=== PATIENT | male | born 1945 | race Caucasian/White ===

== ENCOUNTER 2018-04-09 19:01 | Inpatient (IN) | payer MEDICARE, BC ==
[2018-04-09] MEDS ORDERED: Acetaminophen 325 MG Tab PO ONE (19:37)
[2018-04-09] MEDS ORDERED: Sodium Chloride 0.9% 1,000 ML IV ONE (19:37)
[2018-04-09] MEDS ORDERED: cefTRIAXone 1 GM Vial IVPUSH ONE (20:33)
--- NOTE | 2018-04-09 20:35 | EDM.PDOC ---
ED HPI GENERAL MEDICAL PROBLEM - General Chief Complaint: General Stated Complaint: SHORT OF BREATH, SHAKING Time Seen by Provider: 04/09/18 19:35 Source of Information: Reports: Patient History Limitations: Reports: No Limitations - History of Present Illness INITIAL COMMENTS - FREE TEXT/NARRATIVE: Patient is a 73-year-old gentleman who presents to the emergency department via EMS for complaint of fever. Patient states that he developed a cough yesterday. However, developed fever, sweaty and weakness today. Patient has a history of urinary retention and does daily urinary catheterization. Patient states he averages about 4 times per day. Patient denies chest pain, shortness of breath, abdominal pain, flank pain, testicular pain, contact with any known sick individuals, or bowel changes. 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 Constitutional: Reports: Fever, Chills, Malaise, Weakness HEENT: Reports: No Symptoms Respiratory: Reports: Cough Cardiovascular: Reports: No Symptoms Endocrine: Reports: No Symptoms GI/Abdominal: Reports: No Symptoms : Reports: Urinary Retention Musculoskeletal: Reports: No Symptoms Skin: Reports: Diaphoresis Neurological: Reports: No Symptoms Psychiatric: Reports: No Symptoms Hematologic/Lymphatic: Reports: No Symptoms Immunologic: Reports: No Symptoms ED EXAM, GENERAL - Physical Exam Exam: See Below Exam Limited By: No Limitations General Appearance: Alert, WD/WN, No Apparent Distress Eye Exam: Bilateral Eye: Normal Inspection Nose: Normal Inspection, Normal Mucosa, No Blood Throat/Mouth: Normal Inspection, Normal Oropharynx, No Airway Compromise Head: Atraumatic, Normocephalic Neck: Normal Inspection, Supple, Non-Tender Respiratory/Chest: No Respiratory Distress, Lungs Clear, Normal Breath Sounds, No Accessory Muscle Use, Chest Non-Tender Cardiovascular: No Murmur, Tachycardia GI/Abdominal: Normal Bowel Sounds, Soft, Non-Tender (Male) Exam: Normal Inspection Back Exam: Normal Inspection. No: CVA Tenderness (L), CVA Tenderness (R) Extremities: Normal Inspection, Non-Tender, No Pedal Edema Neurological: Alert, Oriented, Normal Cognition Psychiatric: Normal Affect, Normal Mood Skin Exam: Warm, Intact, Normal Color, No Rash, Diaphoretic Lymphatic: No Adenopathy Course - Vital Signs Last Recorded V/S: Last Vital Signs Temp 102.6 F H 04/09/18 20:53 Pulse 121 H 04/09/18 19:29 Resp 27 H 04/09/18 19:29 BP 120/53 L 04/09/18 19:29 Pulse Ox 93 L 04/09/18 19:29 - Orders/Labs/Meds Orders: Active Orders 24 hr Category Date Time Status Peripheral IV Care [RC] . DIRECTED Care 04/09/18 19:37 Ordered CULTURE BLOOD [BC] Stat Lab 04/09/18 19:37 Ordered CULTURE BLOOD [BC] Stat Lab 04/09/18 19:37 Ordered CULTURE URINE [RM] Stat Lab 04/09/18 20:10 Received Sodium Chloride 0.9% [Saline Flush] Med 04/09/18 19:37 Ordered 10 ml FLUSH Q8HR PRN Blood Culture x2 Reflex Set [OM.PC] Stat Oth 04/09/18 19:37 Ordered Peripheral IV Insertion Adult [OM.PC] Routine Oth 04/09/18 19:37 Ordered Medication Orders Sodium Chloride (Saline Flush) 10 ml FLUSH Q8HR PRN PRN Reason: keep vein open Labs: Laboratory Tests 04/09/18 04/09/18 04/09/18 Range/Units 19:20 19:20 19:20 WBC 7.07 (5.00-10.00) 10^3/uL RBC 5.24 (4.50-6.00) 10^6/uL Hgb 16.0 (13.0-17.0) g/dL Hct 45.6 (40.0-52.0) % MCV 87.0 (82.0-92.0) fL MCH 30.5 (27.0-31.0) pg MCHC 35.1 (32.0-36.0) g/dL RDW 15.0 H (11.5-14.5) % Plt Count 196 (150-400) 10^3/uL MPV 8.8 (7.4-10.4) fL Immature Gran % (Auto) 0.4 (0.0-5.0) % Neut % (Auto) 88.1 H (50.0-70.0) % Lymph % (Auto) 8.9 L (20.0-40.0) % [place] % (Auto) 2.3 (2.0-8.0) % Eos % (Auto) 0.0 L (1.0-3.0) % Baso % (Auto) 0.3 (0.0-1.0) % Immature Gran # (Auto) 0.03 (0.00-0.50) 10^3/uL Neut # (Auto) 6.23 (2.50-7.00) 10^3/uL Lymph # (Auto) 0.63 L (1.00-4.00) 10^3/uL [place] # (Auto) 0.16 (0.10-0.80) 10^3/uL Eos # (Auto) 0.00 L (0.10-0.30) 10^3/uL Baso # (Auto) 0.02 (0.00-0.10) 10^3/uL Sodium 135 L (136-145) mmol/L Potassium 3.4 (3.3-5.3) mmol/L Chloride 98 (98-115) mmol/L Carbon Dioxide 21.4 (21.0-32.0) mmol/L Anion Gap 19.0 H (5-15) mmol/L BUN 27 H (6-25) mg/dL Creatinine 1.52 H (0.51-1.17) mg/dL Est Cr Clr Drug Dosing 48.19 mL/min Estimated GFR (MDRD) 45 mL/min Glucose 124 H (75 - 99) mg/dL Lactic Acid 2.4 H (0.4-2.0) mmol/L Calcium 8.9 (8.7-10.3) mg/dL Total Bilirubin 1.2 H (0.2-1.0) mg/dL AST 39 H (15-37) U/L ALT 39 (12-78) U/L Alkaline Phosphatase 70 (46-116) IU/L Total Protein 7.7 (6.4-8.2) g/dL Albumin 3.36 (3.00-4.80) g/dL Specimen Type Urine Color (YELLOW) Urine Appearance (CLEAR) Urine pH (5.0-9.0) Ur Specific [place] (1.005-1.030) Urine Protein (NEGATIVE) mg/dL Urine Glucose (UA) (NEGATIVE) mg/dL Urine Ketones (NEGATIVE) mg/dL Urine Occult Blood (NEGATIVE) Urine Nitrite (NEGATIVE) Urine Bilirubin (NEGATIVE) Urine Urobilinogen (0.2-1.0) E.U./dL Ur Leukocyte Esterase (NEGATIVE) Urine RBC (0-5) /HPF Urine WBC (0-5) /HPF Ur Epithelial Cells /LPF Urine Bacteria (NONE TO FEW) /HPF 04/09/18 Range/Units 20:10 WBC (5.00-10.00) 10^3/uL RBC (4.50-6.00) 10^6/uL Hgb (13.0-17.0) g/dL Hct (40.0-52.0) % MCV (82.0-92.0) fL MCH (27.0-31.0) pg MCHC (32.0-36.0) g/dL RDW (11.5-14.5) % Plt Count (150-400) 10^3/uL MPV (7.4-10.4) fL Immature Gran % (Auto) (0.0-5.0) % Neut % (Auto) (50.0-70.0) % Lymph % (Auto) (20.0-40.0) % [place] % (Auto) (2.0-8.0) % Eos % (Auto) (1.0-3.0) % Baso % (Auto) (0.0-1.0) % Immature Gran # (Auto) (0.00-0.50) 10^3/uL Neut # (Auto) (2.50-7.00) 10^3/uL Lymph # (Auto) (1.00-4.00) 10^3/uL [place] # (Auto) (0.10-0.80) 10^3/uL Eos # (Auto) (0.10-0.30) 10^3/uL Baso # (Auto) (0.00-0.10) 10^3/uL Sodium (136-145) mmol/L Potassium (3.3-5.3) mmol/L Chloride (98-115) mmol/L Carbon Dioxide (21.0-32.0) mmol/L Anion Gap (5-15) mmol/L BUN (6-25) mg/dL Creatinine (0.51-1.17) mg/dL Est Cr Clr Drug Dosing mL/min Estimated GFR (MDRD) mL/min Glucose (75 - 99) mg/dL Lactic Acid (0.4-2.0) mmol/L Calcium (8.7-10.3) mg/dL Total Bilirubin (0.2-1.0) mg/dL AST (15-37) U/L ALT (12-78) U/L Alkaline Phosphatase (46-116) IU/L Total Protein (6.4-8.2) g/dL Albumin (3.00-4.80) g/dL Specimen Type Urincc Urine Color Yellow (YELLOW) Urine Appearance Turbid H (CLEAR) Urine pH 5.5 (5.0-9.0) Ur Specific [place] >= 1.030 (1.005-1.030) Urine Protein 100 H (NEGATIVE) mg/dL Urine Glucose (UA) Negative (NEGATIVE) mg/dL Urine Ketones Negative (NEGATIVE) mg/dL Urine Occult Blood Moderate H (NEGATIVE) Urine Nitrite Positive H (NEGATIVE) Urine Bilirubin Negative (NEGATIVE) Urine Urobilinogen 1.0 (0.2-1.0) E.U./dL Ur Leukocyte Esterase Small H (NEGATIVE) Urine RBC 5-10 H (0-5) /HPF Urine WBC 50-75 H (0-5) /HPF Ur Epithelial Cells Occasional /LPF Urine Bacteria Many H (NONE TO FEW) /HPF Meds: Medications Generic Name Dose Route Start Last Admin Trade Name Freq PRN Reason Stop Dose Admin Sodium Chloride 10 ml 04/09/18 19:37 Saline Flush FLUSH Q8HR PRN keep vein open Discontinued Medications Generic Name Dose Route Start Last Admin Trade Name Freq PRN Reason Stop Dose Admin Acetaminophen 650 mg 04/09/18 19:37 04/09/18 19:48 Tylenol PO 04/09/18 19:38 650 mg NOW ONE Administration Ceftriaxone Sodium 1 gm 04/09/18 20:33 04/09/18 20:51 Rocephin IVPUSH 04/09/18 20:34 1 gm ONETIME ONE Administration Sodium Chloride 1,000 mls @ 999 mls/hr 04/09/18 19:37 04/09/18 19:46 Normal Saline IV 04/09/18 20:37 999 mls/hr .BOLUS ONE Administration Ibuprofen 600 mg 04/09/18 20:47 04/09/18 20:53 Motrin PO 04/09/18 20:48 600 mg ONETIME ONE Administration - Radiology Interpretation Free Text/Narrative:: Chest x-ray shows perihilar vascular congestion and cardiomegaly Departure - Departure Time of Disposition: 21:22 Disposition: Admitted As Inpatient 65 Condition: Fair Clinical Impression: UTI, Urinary tract infectious disease - Discharge Information Referrals: Memo Arevalo PA-C [Primary Care Provider] - Forms: ED Department Discharge - My Orders Last 24 Hours: My Active Orders 04/09/18 19:37 Peripheral IV Care [RC] . DIRECTED CULTURE BLOOD [BC] Stat CULTURE BLOOD [BC] Stat Sodium Chloride 0.9% [Saline Flush] 10 ml FLUSH Q8HR PRN Blood Culture x2 Reflex Set [OM.PC] Stat Peripheral IV Insertion Adult [OM.PC] Routine 04/09/18 20:10 CULTURE URINE [RM] Stat - Assessment/Plan Last 24 Hours: My Active Orders 04/09/18 19:37 Peripheral IV Care [RC] . DIRECTED CULTURE BLOOD [BC] Stat CULTURE BLOOD [BC] Stat Sodium Chloride 0.9% [Saline Flush] 10 ml FLUSH Q8HR PRN Blood Culture x2 Reflex Set [OM.PC] Stat Peripheral IV Insertion Adult [OM.PC] Routine 04/09/18 20:10 CULTURE URINE [RM] Stat Assessment:: Urinary tract infection Plan: Admitted inpatient to Dr. Dumas
[2018-04-09] MEDS ORDERED: Ibuprofen 600 MG Tab PO ONE (20:47)
--- NOTE | 2018-04-09 21:08 | CR ---
[id number] RAD/RAD Chest PA or AP 1V EXAM: RAD Chest PA or AP 1V INDICATION: FEVER COMPARISON: None. DISCUSSION: Cardiomediastinal silhouette is increased in size. Low lung volumes. Pulmonary vascular congestion with patchy airspace opacification bilaterally. No pneumothorax or pleural effusion. IMPRESSION: Pulmonary vascular congestion in the setting of cardiomegaly. Yan Goel DO 04/09/18 2107 Thank you for allowing us to participate in the care of your patient.
[2018-04-09] MEDS: Sodium Chloride 0.9% 1,000 ML IV SCH (21:34)
[2018-04-10] MEDS: Sodium Chloride 0.9% 1,000 ML IV SCH ×3 (05:34→20:42)
[2018-04-10] MEDS: Simvastatin 20 MG Tab PO SCH (08:10)
[2018-04-10] MEDS: Dutasteride 0.5 MG Cap PO SCH (08:10)
[2018-04-10] MEDS: Acetaminophen 500 MG Tab PO PRN ×2 (08:15→21:37)
--- NOTE | 2018-04-10 12:03 | PCM.HP ---
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, RN History Limitations: Reports: No Limitations - Related Data Allergies/Adverse Reactions: Allergies Allergy/AdvReac Type Severity Reaction Status Date / Time No Known Drug Allergies Allergy Cannot Verified 04/09/18 19:36 Remember Home Medications: Home Meds Dutasteride 0.5 mg PO DAILY 04/09/18 [History] Losartan/Hydrochlorothiazide [Losartan-HCTZ 50-12.5 MG] 1 tab PO DAILY 04/09/18 [History] Simvastatin 20 mg PO DAILY 04/09/18 [History] Past Medical History Cardiovascular History: Reports: High Cholesterol, Hypertension Gastrointestinal History: Reports: None Genitourinary History: Reports: Retention, Urinary, Other (See Below) Other Genitourinary History: self cath - Past Surgical History Head Surgeries/Procedures: Reports: None Cardiovascular Surgical History: Reports: None GI Surgical History: Reports: Hernia, Inguinal Male Surgical History: Reports: None Social & Family History - Family History Family Medical History: Noncontributory - Tobacco Use Smoking Status *Q: Never Smoker - Caffeine Use Caffeine Use: Reports: Coffee, Soda - Recreational Drug Use Recreational Drug Use: No H&P Review of Systems - Review of Systems: Review Of Systems: See Below General: Reports: Fever, Malaise, Night Sweats HEENT: Reports: No Symptoms Pulmonary: Reports: No Symptoms Cardiovascular: Reports: Blood Pressure Problem Gastrointestinal: Reports: No Symptoms Genitourinary: Reports: Retention Musculoskeletal: Reports: No Symptoms Skin: Reports: No Symptoms Psychiatric: Denies: Confusion, Agitation Neurological: Reports: No Symptoms Hematologic/Lymphatic: Reports: No Symptoms Immunologic: Reports: No Symptoms Exam - Exam Exam: See Below - Vital Signs Vital Signs: Last Vital Signs Temp 97.3 F 04/10/18 10:41 Pulse 78 04/10/18 10:41 Resp 17 04/10/18 10:41 BP 100/59 L 04/10/18 10:41 Pulse Ox 96 04/10/18 10:41 Weight: 222 lb 11.2 oz - Exam Quality Assessment: No: Supplemental Oxygen General: Alert, Oriented, Cooperative. No: Mild Distress HEENT: Conjunctiva Clear, Mucosa Moist & [place]. No: Scleral Icterus Neck: Supple, Trachea Midline. No: JVD Lungs: Clear to Auscultation, Normal Respiratory Effort Cardiovascular: Regular Rate, Regular Rhythm, Normal S1, Normal S2 GI/Abdominal Exam: Soft, Other (Decreased bowel tones). No: Distended, Guarding , Rigid, Mass (Male) Exam: Deferred Back Exam: No: CVA Tenderness (L), CVA Tenderness (R) Extremities: No Pedal Edema Peripheral Pulses: 1+: Brachial (R), 2+: Radial (L) Skin: Warm, Dry, Intact Neurological: Cranial Nerves Intact Neuro Extensive - Mental Status: Alert, Oriented x3, Normal Mood/Affect, Normal Cognition Neuro Extensive - Motor, Sensory, Reflexes: CN II-XII Intact Psychiatric: Alert, Normal Affect, Normal Mood - Patient Data Lab Results Last 24 hrs: Laboratory Results - last 24 hr 04/09/18 04/09/18 04/09/18 Range/Units 19:20 19:20 19:20 WBC 7.07 (5.00-10.00) 10^3/uL RBC 5.24 (4.50-6.00) 10^6/uL Hgb 16.0 (13.0-17.0) g/dL Hct 45.6 (40.0-52.0) % MCV 87.0 (82.0-92.0) fL MCH 30.5 (27.0-31.0) pg MCHC 35.1 (32.0-36.0) g/dL RDW 15.0 H (11.5-14.5) % Plt Count 196 (150-400) 10^3/uL MPV 8.8 (7.4-10.4) fL Immature Gran % (Auto) 0.4 (0.0-5.0) % Neut % (Auto) 88.1 H (50.0-70.0) % Lymph % (Auto) 8.9 L (20.0-40.0) % [place] % (Auto) 2.3 (2.0-8.0) % Eos % (Auto) 0.0 L (1.0-3.0) % Baso % (Auto) 0.3 (0.0-1.0) % Immature Gran # (Auto) 0.03 (0.00-0.50) 10^3/uL Neut # (Auto) 6.23 (2.50-7.00) 10^3/uL Lymph # (Auto) 0.63 L (1.00-4.00) 10^3/uL [place] # (Auto) 0.16 (0.10-0.80) 10^3/uL Eos # (Auto) 0.00 L (0.10-0.30) 10^3/uL Baso # (Auto) 0.02 (0.00-0.10) 10^3/uL Sodium 135 L (136-145) mmol/L Potassium 3.4 (3.3-5.3) mmol/L Chloride 98 (98-115) mmol/L Carbon Dioxide 21.4 (21.0-32.0) mmol/L Anion Gap 19.0 H (5-15) mmol/L BUN 27 H (6-25) mg/dL Creatinine 1.52 H (0.51-1.17) mg/dL Est Cr Clr Drug Dosing 48.19 mL/min Estimated GFR (MDRD) 45 mL/min Glucose 124 H (75 - 99) mg/dL Lactic Acid 2.4 H (0.4-2.0) mmol/L Calcium 8.9 (8.7-10.3) mg/dL Total Bilirubin 1.2 H (0.2-1.0) mg/dL AST 39 H (15-37) U/L ALT 39 (12-78) U/L Alkaline Phosphatase 70 (46-116) IU/L B-Natriuretic Peptide (0-100) pg/mL Total Protein 7.7 (6.4-8.2) g/dL Albumin 3.36 (3.00-4.80) g/dL Specimen Type Urine Color (YELLOW) Urine Appearance (CLEAR) Urine pH (5.0-9.0) Ur Specific [place] (1.005-1.030) Urine Protein (NEGATIVE) mg/dL Urine Glucose (UA) (NEGATIVE) mg/dL Urine Ketones (NEGATIVE) mg/dL Urine Occult Blood (NEGATIVE) Urine Nitrite (NEGATIVE) Urine Bilirubin (NEGATIVE) Urine Urobilinogen (0.2-1.0) E.U./dL Ur Leukocyte Esterase (NEGATIVE) Urine RBC (0-5) /HPF Urine WBC (0-5) /HPF Ur Epithelial Cells /LPF Urine Bacteria (NONE TO FEW) /HPF 04/09/18 04/09/18 Range/Units 19:20 20:10 WBC (5.00-10.00) 10^3/uL RBC (4.50-6.00) 10^6/uL Hgb (13.0-17.0) g/dL Hct (40.0-52.0) % MCV (82.0-92.0) fL MCH (27.0-31.0) pg MCHC (32.0-36.0) g/dL RDW (11.5-14.5) % Plt Count (150-400) 10^3/uL MPV (7.4-10.4) fL Immature Gran % (Auto) (0.0-5.0) % Neut % (Auto) (50.0-70.0) % Lymph % (Auto) (20.0-40.0) % [place] % (Auto) (2.0-8.0) % Eos % (Auto) (1.0-3.0) % Baso % (Auto) (0.0-1.0) % Immature Gran # (Auto) (0.00-0.50) 10^3/uL Neut # (Auto) (2.50-7.00) 10^3/uL Lymph # (Auto) (1.00-4.00) 10^3/uL [place] # (Auto) (0.10-0.80) 10^3/uL Eos # (Auto) (0.10-0.30) 10^3/uL Baso # (Auto) (0.00-0.10) 10^3/uL Sodium (136-145) mmol/L Potassium (3.3-5.3) mmol/L Chloride (98-115) mmol/L Carbon Dioxide (21.0-32.0) mmol/L Anion Gap (5-15) mmol/L BUN (6-25) mg/dL Creatinine (0.51-1.17) mg/dL Est Cr Clr Drug Dosing mL/min Estimated GFR (MDRD) mL/min Glucose (75 - 99) mg/dL Lactic Acid (0.4-2.0) mmol/L Calcium (8.7-10.3) mg/dL Total Bilirubin (0.2-1.0) mg/dL AST (15-37) U/L ALT (12-78) U/L Alkaline Phosphatase (46-116) IU/L B-Natriuretic Peptide 66 (0-100) pg/mL Total Protein (6.4-8.2) g/dL Albumin (3.00-4.80) g/dL Specimen Type Urincc Urine Color Yellow (YELLOW) Urine Appearance Turbid H (CLEAR) Urine pH 5.5 (5.0-9.0) Ur Specific [place] >= 1.030 (1.005-1.030) Urine Protein 100 H (NEGATIVE) mg/dL Urine Glucose (UA) Negative (NEGATIVE) mg/dL Urine Ketones Negative (NEGATIVE) mg/dL Urine Occult Blood Moderate H (NEGATIVE) Urine Nitrite Positive H (NEGATIVE) Urine Bilirubin Negative (NEGATIVE) Urine Urobilinogen 1.0 (0.2-1.0) E.U./dL Ur Leukocyte Esterase Small H (NEGATIVE) Urine RBC 5-10 H (0-5) /HPF Urine WBC 50-75 H (0-5) /HPF Ur Epithelial Cells Occasional /LPF Urine Bacteria Many H (NONE TO FEW) /HPF Result Diagrams: 04/09/18 19:20 04/09/18 19:20 Lm Results Last 24 hrs: Microbiology 04/09/18 19:20 Aerobic Blood Culture - Final Blood - Venous - Lab Draw 04/09/18 19:20 Aerobic Blood Culture - Final Blood - Venous Anaerobic Blood Culture - Final 04/09/18 20:10 Urine Culture - Final Urine, Clean Catch 04/09/18 19:20 Influenza Type A Antigen Screen - Final Nasal Aspirate, Unspecified NEGATIVE INFLUENZA A VIRUS AG Influenza Type B Antigen Screen - Final NEGATIVE INFLUENZA B VIRUS AG Problem List Initiated/Reviewed/Updated: Yes Orders Last 24hrs: Active Orders 24 hr Category Date Time Status Patient Status [ADT] Routine ADT 04/09/18 21:16 Ordered Phillips Catheter Insertion [Insert Urinary Catheter] [OM. Care 04/10/18 05:15 Ordered PC] Q24H Oxygen Therapy [RC] PRN Care 04/09/18 21:16 Active Urinary Catheter Assessment [RC] 0900,2100 Care 04/10/18 05:10 Active Vital Signs [RC] 0300,0700,1100,1500,1900,2300 Care 04/09/18 21:16 Active AEROBIC IDENT [MREF] Stat Lab 04/09/18 19:20 Received AEROBIC IDENT [MREF] Stat Lab 04/09/18 19:20 Received AEROBIC IDENT [MREF] Stat Lab 04/09/18 19:20 Received AEROBIC IDENT [MREF] Stat Lab 04/09/18 19:20 Received CULTURE BLOOD [BC] Stat Lab 04/09/18 19:20 Results URINE ID [MREF] Stat Lab 04/09/18 20:10 Received Acetaminophen [Tylenol Extra Strength] Med 04/09/18 22:16 Active 500 mg PO Q6H PRN Dutasteride [Avodart] Med 04/10/18 09:00 Active 0.5 mg PO DAILY Simvastatin [Zocor] Med 04/10/18 09:00 Active 20 mg PO DAILY Sodium Chloride 0.9% [Normal Saline] 1,000 ml Med 04/09/18 21:30 Active IV ASDIRECTED Sodium Chloride 0.9% [Saline Flush] Med 04/09/18 19:37 Active 10 ml FLUSH Q8HR PRN Blood Culture x2 Reflex Set [OM.PC] Stat Oth 04/09/18 19:37 Ordered Peripheral IV Insertion Adult [OM.PC] Routine Oth 04/09/18 19:37 Ordered Resuscitation Status Routine Resus Stat 04/09/18 21:16 Ordered Medication Orders Acetaminophen (Tylenol Extra Strength) 500 mg PO Q6H PRN PRN Reason: temp >100.0 Last Admin: 04/10/18 08:15 Dose: 500 mg Dutasteride (Avodart) 0.5 mg PO DAILY [facility] Last Admin: 04/10/18 08:10 Dose: 0.5 mg Sodium Chloride (Normal Saline) 1,000 mls @ 125 mls/hr IV ASDIRECTED [facility] Last Admin: 04/10/18 05:34 Dose: 125 mls/hr Infusion: 04/10/18 05:34 Dose: 125 mls/hr Admin: 04/09/18 21:34 Dose: 125 mls/hr Simvastatin (Zocor) 20 mg PO DAILY [facility] Last Admin: 04/10/18 08:10 Dose: 20 mg Sodium Chloride (Saline Flush) 10 ml FLUSH Q8HR PRN PRN Reason: keep vein open Assessment/Plan Comment:: History of present illness Roberto is a 73-year-old patient who was admitted through the ED when he came in for fever. Patient was in his usual state of health up until 24 hours upon presentation when he started developing a cough, diaphoresis and some weakness. Patient has BPH with urinary retention in which he self catheterizes himself up to 4 times a day, however does admit to some decreased oral intake and being in a card game tournament which he does admit waiting longer before self catheterization. Patient denies chest pain, shortness of breath, abdominal pain , flank pain, testicular pain, ill contacts, or bowel changes. ED course Patient presented to ED with documented temperature 101.8 with tachycardia, initial BP reading of 120/53 with increased RR with decreasingn BP later into admission. O2 saturations 93% however required 10 L of oxygen patient was somewhat confused and does not remember much leading up to the events. Although WBC was normal he did have neutrophilia, Reviewing his UA appears consistent with sx and highly suggestive of a urological etiology. Blood cultures urine cultures were obtained, Rocephin was given in ED. Primary Hospitalization problems: Bacteriuria/catheter related UTI, suspect E.coli urine culture gram-negative, possibly polymicrobial, Bacteremia, antibiotics, IV fluids, qSOFA improving 1/3 now Urinary retention, chronic continue Phillips catheterization for accurate output today Pyuria, >50 WBC noted. Confusion, resolved Chronic but stable problems BPH, home med of Dutasteride, (review of EMR/EPIC has flomax, will update) HTN, HOLD home meds due to sepsis HLD, on home statin however review of EMR appears pt is not in statin benefit group, will discuss about possible discontinuation Prophylactic measures --VTE, LMWH --GI stress, PPI therapy Hospitalization details: Continue NS at 125cc/hr. Electrolytes normal; recheck tomorrow. add Regular diet , may decrease tonight PPX: Enoxaparin for DVT ppx. Code status: FULL. Disposition Continue with admission inpatient status, Clinical status starting to return back to his baseline. Afebrile, blood pressure lower then baseline but improving MAP at 70. Urine culture and anerobic BC growing gram negative rods, and aerobic gram-positive cocci, likely not ESBL, gram-positive cocci anaerobic thereby increase ceftriaxone to 2 g. At this time he seems to be improving with monotherapy ceftriaxone therefore will forego broadening antimicrobial coverage as long as signs and symptoms of sepsis are abating and not acutely evident. Patient will need extended stay.
[2018-04-10] MEDS ORDERED: Losartan 50 MG Tab PO SCH (12:15)
[2018-04-10] MEDS ORDERED: Hydrochlorothiazide 12.5 MG Cap PO SCH ×2 (12:15→12:30)
[2018-04-10] MEDS: Enoxaparin 40 MG/0.4 ML Syringe SUBCUT SCH (12:37)
[2018-04-10] MEDS: Omeprazole 20 MG Cap.CR PO SCH (13:45)
[2018-04-10] MEDS: cefTRIAXone 2 GM Vial IVPUSH SCH (17:37)
[2018-04-11] MEDS ORDERED: LORazepam 2 MG/ML SDV IVPUSH PRN (01:43)
[2018-04-11] MEDS: Ketorolac 30 MG/ML SDV IVPUSH PRN ×2 (02:01→22:48)
[2018-04-11] MEDS: Sodium Chloride 0.9% 1,000 ML IV SCH (05:10)
[2018-04-11] MEDS: Simvastatin 20 MG Tab PO SCH (08:35)
[2018-04-11] MEDS: Omeprazole 20 MG Cap.CR PO SCH (08:35)
[2018-04-11] MEDS: Dutasteride 0.5 MG Cap PO SCH (08:35)
[2018-04-11 10:05] LABS: ANION GAP 15.4 mmol/L (5-15); CHLORIDE,CL 106 mmol/L (98-115); SODIUM,NA 137 mmol/L (136-145)
--- NOTE | 2018-04-11 12:38 | PCM.PN ---
- General Info Date of Service: 04/11/18 Subjective Update: Mr. Wilkerson reports feeling well this morning. States he feels much better than at admission. He continues to have a cough, but denies any associated sputum production, shortness of breath, chest pain, palpitations, or other concerns. When noting previously documented respiratory rate being elevated, he states he feels his rate is normal for him and denies it feeling fast or labored. He was previously self catheterizing 2-3 times daily and now has an indwelling catheter in, which he states he desires to leave in place at this time. Appetite was improved, but today not very hungry for lunch. Denies fever, headache, sore throat, abdominal pain, flank pain, genital pain, nausea, vomiting, diarrhea, constipation, leg pain, or other concerns. - Patient Data Vitals - Most Recent: Last Vital Signs Temp 37.2 C 04/11/18 11:00 Pulse 103 H 04/11/18 11:00 Resp 36 H 04/11/18 11:00 BP 144/87 H 04/11/18 11:00 Pulse Ox 93 L 04/11/18 11:00 Weight - Most Recent: 101.015 kg I&O - Last 24 Hours: Intake & Output 04/10/18 04/11/18 04/11/18 22:59 06:59 14:59 Intake Total 1383 980 Output Total 500 500 Balance 883 480 Lab Results Last 24 Hours: Laboratory Results - last 24 hr 04/11/18 04/11/18 Range/Units 07:27 07:27 WBC 9.34 (5.00-10.00) 10^3/uL RBC 4.45 L (4.50-6.00) 10^6/uL Hgb 13.6 D (13.0-17.0) g/dL Hct 39.2 L (40.0-52.0) % MCV 88.1 (82.0-92.0) fL MCH 30.6 (27.0-31.0) pg MCHC 34.7 (32.0-36.0) g/dL RDW 15.6 H (11.5-14.5) % Plt Count 180 (150-400) 10^3/uL MPV 9.2 (7.4-10.4) fL Immature Gran % (Auto) 0.2 (0.0-5.0) % Neut % (Auto) 81.0 H (50.0-70.0) % Lymph % (Auto) 12.3 L (20.0-40.0) % [place] % (Auto) 6.4 (2.0-8.0) % Eos % (Auto) 0.0 L (1.0-3.0) % Baso % (Auto) 0.1 (0.0-1.0) % Immature Gran # (Auto) 0.02 (0.00-0.50) 10^3/uL Neut # (Auto) 7.56 H (2.50-7.00) 10^3/uL Lymph # (Auto) 1.15 (1.00-4.00) 10^3/uL [place] # (Auto) 0.60 (0.10-0.80) 10^3/uL Eos # (Auto) 0.00 L (0.10-0.30) 10^3/uL Baso # (Auto) 0.01 (0.00-0.10) 10^3/uL Sodium 137 (136-145) mmol/L Potassium 3.4 (3.3-5.3) mmol/L Chloride 106 (98-115) mmol/L Carbon Dioxide 19.0 L (21.0-32.0) mmol/L Anion Gap 15.4 H (5-15) mmol/L BUN 30 H (6-25) mg/dL Creatinine 1.11 (0.51-1.17) mg/dL Est Cr Clr Drug Dosing 65.98 mL/min Estimated GFR (MDRD) > 60 mL/min Glucose 92 (75 - 99) mg/dL Calcium 7.9 L (8.7-10.3) mg/dL Lm Results Last 24 Hours: Microbiology 04/09/18 19:20 Aerobic Blood Culture - Final Blood - Venous - Lab Draw Anaerobic Blood Culture - Final 04/09/18 19:20 Aerobic Blood Culture - Final Blood - Venous Anaerobic Blood Culture - Final 04/09/18 20:10 Urine Culture - Final Urine, Clean Catch Med Orders - Current: Current Medications Acetaminophen (Tylenol Extra Strength) 500 mg PO Q6H PRN PRN Reason: temp >100.0 Last Admin: 04/10/18 21:37 Dose: 500 mg Ceftriaxone Sodium (Rocephin) 2 gm IVPUSH Q24H [facility] Last Admin: 04/10/18 17:37 Dose: 2 gm Dutasteride (Avodart) 0.5 mg PO DAILY [facility] Last Admin: 04/11/18 08:35 Dose: 0.5 mg Enoxaparin Sodium (Lovenox) 40 mg SUBCUT Q24H [facility] Last Admin: 04/10/18 12:37 Dose: 40 mg Hydrochlorothiazide (Hydrochlorothiazide) 12.5 mg PO DAILY [facility] Ketorolac Tromethamine (Toradol) 30 mg IVPUSH Q6H PRN PRN Reason: Pain Stop: 04/16/18 01:43 Last Admin: 04/11/18 02:01 Dose: 30 mg Lorazepam (Ativan) 0.5 mg IVPUSH Q6H PRN PRN Reason: Anxiety Last Admin: 04/11/18 03:58 Dose: 0.5 mg Losartan Potassium (Cozaar) 50 mg PO DAILY [facility] Melatonin (Melatonin) 3 mg PO BEDTIME [facility] Omeprazole (Omeprazole) 20 mg PO ACBREAKFAST [facility] Last Admin: 04/11/18 08:35 Dose: 20 mg Simvastatin (Zocor) 20 mg PO DAILY [facility] Last Admin: 04/11/18 08:35 Dose: 20 mg Sodium Chloride (Saline Flush) 10 ml FLUSH Q8HR PRN PRN Reason: keep vein open Discontinued Medications Acetaminophen (Tylenol) 650 mg PO NOW ONE Stop: 04/09/18 19:38 Last Admin: 04/09/18 19:48 Dose: 650 mg Ceftriaxone Sodium (Rocephin) 1 gm IVPUSH ONETIME ONE Stop: 04/09/18 20:34 Last Admin: 04/09/18 20:51 Dose: 1 gm Hydrochlorothiazide (Hydrochlorothiazide) 12.5 mg PO DAILY [facility] Last Admin: 04/10/18 12:34 Dose: Not Given Sodium Chloride (Normal Saline) 1,000 mls @ 999 mls/hr IV .BOLUS ONE Stop: 04/09/18 20:37 Last Admin: 04/09/18 19:46 Dose: 999 mls/hr Sodium Chloride (Normal Saline) 1,000 mls @ 125 mls/hr IV ASDIRECTED [facility] Last Admin: 04/11/18 05:10 Dose: 125 mls/hr Ibuprofen (Motrin) 600 mg PO ONETIME ONE Stop: 04/09/18 20:48 Last Admin: 04/09/18 20:53 Dose: 600 mg - Exam Physical Findings Comments:: GENERAL: Well-appearing elderly white male sitting in bedside chair in no acute distress, appearing comfortable. HEENT: Normocephalic, atraumatic. Conjunctiva clear. Nares patent without discharge. Mucous membranes moist, posterior pharynx unremarkable. NECK: Supple, no masses. CV: Regular rate and rhythm, no murmurs, rubs, or gallops. 2+ radial pulses. PULMONARY: Mildly tachypneic, but otherwise normal effort, clear to auscultation bilaterally, no wheezes, rales, or rhonchi. Occasional dry cough with deep breathing on exam. ABDOMEN: Obese, positive bowel sounds, soft, nontender, nondistended, no CVA tenderness. EXTREMITIES: No edema, cyanosis, or clubbing. MUSCULOSKELETAL: Moves all extremities well. NEUROLOGICAL: No obvious deficits. DERMATOLOGIC: No rashes or suspicious lesions in exposed areas. PSYCHIATRIC: Alert, interactive, appropriate affect. - Problem List Review Problem List Initiated/Reviewed/Updated: Yes - My Orders Last 24 Hours: My Active Orders 04/11/18 12:35 DC Phillips Catheter [Urinary Catheter Removal] [RC] Per Unit Routine 04/11/18 21:00 Melatonin 3 mg PO BEDTIME 04/12/18 05:11 BASIC METABOLIC PANEL,BMP [CHEM] AM CBC WITH AUTO DIFF [HEME] AM LACTIC ACID [CHEM] AM - Plan Plan:: HPI summary: Mr. Wilkerson is a 73yoM with a history of BPH with urinary retention for which he had prior indwelling urinary catheter and most recently self catheterizing who presented to the ED for fever. He was in his usual state of health up until 24 hours prior to presentation when he started developing a dry cough, diaphoresis , and generalized weakness. He had also been having decreased oral intake and a longer interval than usual between self catheterizations due to being in a card tournament. ED course: He had an initial temperature of 101.8 with tachycardia, tachypnea, and low end BP. Although WBC was normal, he did have neutrophilia. Remainder of labs notable for mildly increased lactic acid of 2.4. UA suggestive of infection. Presentation was thought to be highly suggestive of a urologic infection. Blood and urine cultures were obtained and ceftriaxone 1g given. He was admitted for further monitoring and management. Hospitalization problems and plan: # Sepsis: Initial qSOFA = 2, now = 1 with resolution of confusion, but persistent intermittent tachypnea. Fever on initial presentation without recurrence. He had initial low BPs, which improved with IVF and resolution in the past 24hrs. # Bacteremia: Gram negative rods and gram positive cocci, awaiting identification and susceptibilities. # Bacteriuria: Gram negative rods, awaiting identification and susceptibilities. # Elevated lactate: Admission lactate 2.4. # Neutrophilia: Admission 88%. Today 81%. # Cough: No evidence of infection or obvious fluid overload, but 5L positive on I/O since admission, and initial CXR with pulmonary vascular congestion. # Mild diastolic dysfunction: Echo 2016 finding along with mildly dilated right atrium. No prior clinical history of heart failure. # Acute kidney injury, resolved: Baseline Cr 1. Admission Cr 1.52. Today Cr 1.11. # BPH with urinary retention # Hyperbilirubinemia: Admission 1.2. # Elevated AST: Admission 39. # Confusion, resolved - Continue VS q4h and strict I/O - Await initial blood and urine culture identification and susceptibilities - Repeat blood cultures tomorrow due to presence of gram positive organism to ensure clearance - Repeat CBC, CMP, and lactate in AM - Saline lock IVF due to being +5L for admission, possible component of diastolic heart failure, and clinical and laboratory markers of dehydration now resolved - Continue ceftriaxone 2gm q24h (He was initially given ceftriaxone 1g, which was increased to 2g on admission.) to cover for gram negative rods, likely of urinary source - Start vancomycin to cover for gram positive cocci noted on blood culture - Continue dutasteride - Restart tamsulosin as is documented as recommending continuing at last urology visit - Consider catheter discontinuation tomorrow with return to intermittent self catheterization Chronic, stable conditions: # HTN: Continue holding HCTZ and losartan in setting of sepsis, as above. # HLD: Continue simvastatin. Has been taking for over 7 years without initial lipid panel available to determine risk. Hospitalization details: # FEN: Saline lock IVF, as above. Electrolytes normal; recheck tomorrow. Regular diet. # PPX: Enoxaparin for DVT ppx. Omeprazole for GI ppx. Melatonin for delirium ppx. # Code status: FULL. # Emergency contact: , Debbie. # Disposition: Continue in inpatient status. Needs ongoing close monitoring of clinical status in setting of sepsis and bacteremia, at least until culture identification and susceptibility are obtained. Anticipate discharge to home when ready.
[2018-04-11] MEDS: Enoxaparin 40 MG/0.4 ML Syringe SUBCUT SCH (13:11)
[2018-04-11] MEDS ORDERED: Menthol 7.6 MG Sugar Free Lozenge PO PRN (16:32)
[2018-04-11] MEDS: cefTRIAXone 2 GM Vial IVPUSH SCH (18:33)
[2018-04-11] MEDS: Melatonin 3 MG Tab PO SCH (20:41)
[2018-04-11] MEDS: guaiFENesin/Dextromethorphan 100-10 MG/5 ML Soln 5 ML Cup PO PRN (20:53)
[2018-04-11] MEDS: Sodium Chloride 0.9% 10 ML Syringe FLUSH PRN (22:53)
[2018-04-12] MEDS: Omeprazole 20 MG Cap.CR PO SCH (08:02)
[2018-04-12] MEDS: Simvastatin 20 MG Tab PO SCH (08:02)
[2018-04-12] MEDS: Dutasteride 0.5 MG Cap PO SCH (08:02)
[2018-04-12] MEDS: Tamsulosin 0.4 MG Cap.ER PO SCH (08:02)
[2018-04-12 08:15] LABS: CHLORIDE,CL 104 mmol/L (98-115); SODIUM,NA 137 mmol/L (136-145)
[2018-04-12] MEDS ORDERED: Polyethylene Glycol 3350 Powder 17 GM Packet PO ONE ×2 (10:17→19:20)
[2018-04-12] MEDS ORDERED: Potassium Chloride 10 MEQ Tab.ER PO ONE (10:34)
--- NOTE | 2018-04-12 10:34 | PCM.PN ---
- General Info Date of Service: 04/12/18 Admission Dx/Problem (Free Text): Admission Diagnosis/Problem Admission Diagnosis/Problem UTI (urinary tract infection) due to urinary indwelling catheter Subjective Update: Mr. Wilkerson reports feeling well this morning. He had tachypnea yesterday evening and does report a cough. He states he has had this cough since the 1969 's, has had it worked up by allergists, ENT and no one has found etiology. States if there is any cold air he starts coughing. States the only thing he has found that helps his cough is sleeping with warm air blowing in his face. He is now sleeping with the head of the bed elevated in an attempt to prevent the cough and to help with his breathing. He continues to insist that this is his normal breathing, that he has no shortness of breath in spite of resp rate 24-28. He states "if you try to figure out why I have this breathing before you let me out, I will never be able to go home." He denies any chest pain, no pedal edema. Pt is admitted for UTI with sepsis. He had been self cathing 2-3 times a day due to urinary retention secondary to BPH. He now has an indwelling barrera and he denies any problems with it. He desires to leave in place at this time. He reports a poor appetite for the last 2 days. Denies fever, headache, sore throat, abdominal pain, flank pain, genital pain, nausea, vomiting, diarrhea, constipation, leg pain, or other concerns. Functional Status: Reports: Other (barrera catheter) - Review of Systems General: Reports: No Symptoms, Other (reports poor appetite the last 2 days) HEENT: Reports: No Symptoms Pulmonary: Reports: Cough, Sputum. Denies: Shortness of Breath, Wheezing Cardiovascular: Reports: Dyspnea on Exertion, Orthopnea. Denies: Chest Pain, Edema, Lightheadedness Gastrointestinal: Reports: Other (denies constipation but on further questioning , states has had only small BM the last 2 days) Genitourinary: Reports: Other (barrera cath) Neurological: Reports: No Symptoms - Patient Data Vitals - Most Recent: Last Vital Signs Temp 98.3 F 04/12/18 06:42 Pulse 84 04/12/18 06:42 Resp 28 H 04/12/18 06:42 BP 135/88 04/12/18 06:42 Pulse Ox 94 L 04/12/18 06:42 Weight - Most Recent: 222 lb 11.2 oz I&O - Last 24 Hours: Intake & Output 04/11/18 04/12/18 04/12/18 22:59 06:59 14:59 Intake Total 850 515 Output Total 800 300 Balance 50 215 Lab Results Last 24 Hours: Laboratory Results - last 24 hr 04/12/18 04/12/18 04/12/18 Range/Units 07:35 07:35 07:35 WBC 7.90 (5.00-10.00) 10^3/uL RBC 4.27 L (4.50-6.00) 10^6/uL Hgb 13.0 (13.0-17.0) g/dL Hct 37.3 L (40.0-52.0) % MCV 87.4 (82.0-92.0) fL MCH 30.4 (27.0-31.0) pg MCHC 34.9 (32.0-36.0) g/dL RDW 15.3 H (11.5-14.5) % Plt Count 197 (150-400) 10^3/uL MPV 9.1 (7.4-10.4) fL Immature Gran % (Auto) 0.3 (0.0-5.0) % Neut % (Auto) 77.1 H (50.0-70.0) % Lymph % (Auto) 14.2 L (20.0-40.0) % [place] % (Auto) 7.8 (2.0-8.0) % Eos % (Auto) 0.3 L (1.0-3.0) % Baso % (Auto) 0.3 (0.0-1.0) % Immature Gran # (Auto) 0.02 (0.00-0.50) 10^3/uL Neut # (Auto) 6.10 (2.50-7.00) 10^3/uL Lymph # (Auto) 1.12 (1.00-4.00) 10^3/uL [place] # (Auto) 0.62 (0.10-0.80) 10^3/uL Eos # (Auto) 0.02 L (0.10-0.30) 10^3/uL Baso # (Auto) 0.02 (0.00-0.10) 10^3/uL Sodium 137 (136-145) mmol/L Potassium 3.2 L (3.3-5.3) mmol/L Chloride 104 (98-115) mmol/L Carbon Dioxide 20.2 L (21.0-32.0) mmol/L Anion Gap 16.0 H (5-15) mmol/L BUN 25 (6-25) mg/dL Creatinine 1.03 (0.51-1.17) mg/dL Est Cr Clr Drug Dosing 71.11 mL/min Estimated GFR (MDRD) > 60 mL/min Glucose 95 (75 - 99) mg/dL Lactic Acid 0.8 (0.4-2.0) mmol/L Calcium 8.0 L (8.7-10.3) mg/dL Total Bilirubin 0.7 (0.2-1.0) mg/dL AST 57 H (15-37) U/L ALT 53 (12-78) U/L Alkaline Phosphatase 50 (46-116) IU/L Total Protein 6.3 L (6.4-8.2) g/dL Albumin 2.42 L (3.00-4.80) g/dL Med Orders - Current: Current Medications Acetaminophen (Tylenol Extra Strength) 500 mg PO Q6H PRN PRN Reason: temp >100.0 Last Admin: 04/10/18 21:37 Dose: 500 mg Ceftriaxone Sodium (Rocephin) 2 gm IVPUSH Q24H [facility] Last Admin: 04/11/18 18:33 Dose: 2 gm Dutasteride (Avodart) 0.5 mg PO DAILY [facility] Last Admin: 04/12/18 08:02 Dose: 0.5 mg Enoxaparin Sodium (Lovenox) 40 mg SUBCUT Q24H [facility] Last Admin: 04/11/18 13:11 Dose: 40 mg Guaifenesin/Phenylephrine HCl (Robitussin Dm) 10 ml PO Q4H PRN PRN Reason: Cough Last Admin: 04/11/18 20:53 Dose: 10 ml Hydrochlorothiazide (Hydrochlorothiazide) 12.5 mg PO DAILY [facility] Vancomycin HCl 1.25 gm/ Sodium (Chloride) 250 mls @ 166.667 mls/hr IV Q12H [facility] Last Admin: 04/11/18 23:45 Dose: 166.667 mls/hr Ketorolac Tromethamine (Toradol) 30 mg IVPUSH Q6H PRN PRN Reason: Pain Stop: 04/16/18 01:43 Last Admin: 04/11/18 22:48 Dose: 30 mg Losartan Potassium (Cozaar) 50 mg PO DAILY [facility] Melatonin (Melatonin) 3 mg PO BEDTIME [facility] Last Admin: 04/11/18 20:41 Dose: 3 mg Menthol ([place] Sugar Free) 1 sanaz PO ASDIRECTED PRN PRN Reason: Cough Omeprazole (Omeprazole) 20 mg PO ACBREAKFAST [facility] Last Admin: 04/12/18 08:02 Dose: 20 mg Simvastatin (Zocor) 20 mg PO DAILY [facility] Last Admin: 04/12/18 08:02 Dose: 20 mg Sodium Chloride (Saline Flush) 10 ml FLUSH Q8HR PRN PRN Reason: keep vein open Last Admin: 04/11/18 22:53 Dose: 10 ml Tamsulosin HCl (Flomax) 0.4 mg PO PCBREAKFAST [facility] Last Admin: 04/12/18 08:02 Dose: 0.4 mg Vancomycin HCl (Pharmacy To Dose - Vancomycin) 1 dose .XX ONETIME ONE Stop: 04/11/18 22:57 Discontinued Medications Acetaminophen (Tylenol) 650 mg PO NOW ONE Stop: 04/09/18 19:38 Last Admin: 04/09/18 19:48 Dose: 650 mg Ceftriaxone Sodium (Rocephin) 1 gm IVPUSH ONETIME ONE Stop: 04/09/18 20:34 Last Admin: 04/09/18 20:51 Dose: 1 gm Hydrochlorothiazide (Hydrochlorothiazide) 12.5 mg PO DAILY [facility] Last Admin: 04/10/18 12:34 Dose: Not Given Sodium Chloride (Normal Saline) 1,000 mls @ 999 mls/hr IV .BOLUS ONE Stop: 04/09/18 20:37 Last Admin: 04/09/18 19:46 Dose: 999 mls/hr Sodium Chloride (Normal Saline) 1,000 mls @ 125 mls/hr IV ASDIRECTED [facility] Last Admin: 04/11/18 05:10 Dose: 125 mls/hr Ibuprofen (Motrin) 600 mg PO ONETIME ONE Stop: 04/09/18 20:48 Last Admin: 04/09/18 20:53 Dose: 600 mg Lorazepam (Ativan) 0.5 mg IVPUSH Q6H PRN PRN Reason: Anxiety Last Admin: 04/11/18 03:58 Dose: 0.5 mg Polyethylene Glycol (Miralax) 17 gm PO ONETIME ONE Stop: 04/12/18 10:18 - Exam Quality Assessment: Urine Catheter General: Alert, Oriented, Cooperative, No Acute Distress Lungs: Clear to Auscultation, Decreased Breath Sounds. No: Crackles, Rales, Rhonchi, Wheezing (resp rate 24, appears short of breath which he denies) Cardiovascular: Regular Rate GI/Abdominal Exam: Other (bowel sounds hypoactive. Tympanic to upper areas. Denies tenderness with palpation) (Male) Exam: Other (Barrera cath draining clear dark kailyn urine) Extremities: No Pedal Edema Psy/Mental Status: Alert, Normal Affect, Normal Mood - Problem List Review Problem List Initiated/Reviewed/Updated: Yes - My Orders Last 24 Hours: My Active Orders 04/11/18 20:45 Dextromethorphan/guaiFENesin [Robitussin DM] 10 ml PO Q4H PRN - Plan Plan:: HPI summary: Mr. Wilkerson is a 73yoM with a history of BPH with urinary retention for which he had prior indwelling urinary catheter and most recently self catheterizing who presented to the ED for fever. He was in his usual state of health up until 24 hours prior to presentation when he started developing a dry cough, diaphoresis , and generalized weakness. He had also been having decreased oral intake and a longer interval than usual between self catheterizations due to being in a card tournament. ED course: He had an initial temperature of 101.8 with tachycardia, tachypnea, and low end BP. Although WBC was normal, he did have neutrophilia. Remainder of labs notable for mildly increased lactic acid of 2.4. UA suggestive of infection. Presentation was thought to be highly suggestive of a urologic infection. Blood and urine cultures were obtained and ceftriaxone 1g given. He was admitted for further monitoring and management. Hospitalization problems and plan: # Sepsis: Initial qSOFA = 2, now = 1 with resolution of confusion, but persistent intermittent tachypnea. Fever on initial presentation without recurrence. He had initial low BPs, which improved with IVF. BPs are now within normal range. # Bacteremia: Gram negative rods and gram positive cocci, awaiting susceptibilities. Now on rocephin 2 gm q 24 hrs. Vancomycin started for Gram Pos cocci coverage. Blood cultures repeated today due to presence of gram positive organism to ensure clearance. # Bacteriuria: Gram negative rods, awaiting susceptibilities. Continue ceftriaxone. # Elevated lactate: Admission lactate 2.4. Today WNL at 0.8 # hypokalemia: One time dose of KCl 20 MEq po. recheck CMP in am. # Neutrophilia: Admission 88%. Today neut # WNL at 6.10, 77.1%. # Cough: No evidence of infection or obvious fluid overload. IV fluids were stopped yesterday. Initial CXR with pulmonary vascular congestion. # Mild diastolic dysfunction: Echo 2015 finding along with mildly dilated right atrium. No prior clinical history of heart failure. # Acute kidney injury, resolved: Baseline Cr 1. Admission Cr 1.52. Today Cr 1.03. # BPH with urinary retention. Will continue with indwelling barrera with consideration to discontinue and return to intermittent self catheterization. However, pt is comfortable with and wanting to continue the indwelling barrera. Continue dutasteride and tamsulosin # Hyperbilirubinemia: Admission 1.2. WNL at 0.7 today. # Elevated AST: Admission 39. Higher today at 57. recheck CMP in am. # Confusion, resolved - Continue to wait for blood and urine culture susceptibilities - IVF have been discontinued. Continue saline lock due to being +5L for admission, possible component of diastolic heart failure, and clinical and laboratory markers of dehydration now resolved Chronic, stable conditions: # HTN: Continue holding HCTZ and losartan in setting of sepsis, as above. Will monitor and restart if indicated. # HLD: Continue simvastatin. Has been taking for over 7 years without initial lipid panel available to determine risk. Hospitalization details: # FEN: Saline lock IVF, as above. Electrolytes-hypokalmia with potassium 3.2 today. will replace KCl and recheck tomorrow. Regular diet. # PPX: Enoxaparin for DVT ppx. Omeprazole for GI ppx. Melatonin for delirium ppx. # Code status: FULL. # Emergency contact: , Debbie. # Disposition: Continue in inpatient status. Needs ongoing close monitoring of clinical status in setting of sepsis and bacteremia, at least until culture susceptibility are obtained. Anticipate discharge to home when ready.
[2018-04-12] MEDS: Enoxaparin 40 MG/0.4 ML Syringe SUBCUT SCH (11:39)
[2018-04-12] MEDS: Sodium Chloride 0.9% 10 ML Syringe FLUSH PRN ×2 (11:39→18:14)
[2018-04-12] MEDS: cefTRIAXone 2 GM Vial IVPUSH SCH (18:14)
[2018-04-12] MEDS: Melatonin 3 MG Tab PO SCH (20:10)
[2018-04-12] MEDS: guaiFENesin/Dextromethorphan 100-10 MG/5 ML Soln 5 ML Cup PO PRN (20:10)
[2018-04-12] MEDS: Codeine/guaiFENesin 100-10 MG/5 ML Syrup 5 ML Cup PO PRN (21:36)
[2018-04-12] MEDS: Acetaminophen 500 MG Tab PO PRN (22:49)
[2018-04-13] MEDS: Codeine/guaiFENesin 100-10 MG/5 ML Syrup 5 ML Cup PO PRN ×3 (03:04→20:04)
[2018-04-13] MEDS: Acetaminophen 500 MG Tab PO PRN ×2 (06:34→20:04)
[2018-04-13 07:59] LABS: ANION GAP 19.3 mmol/L (5-15); CHLORIDE,CL 100 mmol/L (98-115); SODIUM,NA 136 mmol/L (136-145)
[2018-04-13] MEDS: Omeprazole 20 MG Cap.CR PO SCH (08:18)
[2018-04-13] MEDS: Tamsulosin 0.4 MG Cap.ER PO SCH (09:17)
[2018-04-13] MEDS: Dutasteride 0.5 MG Cap PO SCH (09:17)
[2018-04-13] MEDS: Simvastatin 20 MG Tab PO SCH (09:17)
--- NOTE | 2018-04-13 09:46 | CR ---
[id number] RAD/RAD Chest PA And Lateral EXAM: RAD Chest PA And Lateral CLINICAL DATA: SHORTNESS OF BREATH COMPARISON: CORRELATION IS MADE WITH THE EXAM OF APRIL 09, 2018. FINDINGS: Bibasilar hypoventilatory changes are seen. The cardiac silhouette is enlarged but stable. There appear to be small bilateral effusions. IMPRESSION: BIBASILAR HYPOVENTILATORY CHANGES. SMALL BILATERAL EFFUSIONS. Alexis Bloom MD 04/13/18 0944 Thank you for allowing us to participate in the care of your patient.
[2018-04-13] MEDS ORDERED: Azithromycin 250 MG Tab PO STA (11:01)
[2018-04-13] MEDS ORDERED: Potassium Chloride 10 MEQ Tab.ER PO ONE (11:04)
--- NOTE | 2018-04-13 11:11 | PCM.PN ---
- General Info Date of Service: 04/13/18 Admission Dx/Problem (Free Text): Admission Diagnosis/Problem Admission Diagnosis/Problem UTI (urinary tract infection) due to urinary indwelling catheter Subjective Update: Mr. Wilkerson reports feeling well this morning. He had tachypnea yesterday evening and does report a cough. He states he has had this cough since the 1969 's, has had it worked up by allergists, ENT and no one has found etiology. States if there is any cold air he starts coughing. States the only thing he has found that helps his cough is sleeping with warm air blowing in his face. He is now sleeping with the head of the bed elevated in an attempt to prevent the cough and to help with his breathing. He continues to insist that this is his normal breathing, that he has no shortness of breath in spite of resp rate 24-28. He states "if you try to figure out why I have this breathing before you let me out, I will never be able to go home." He denies any chest pain, no pedal edema. Pt is admitted for UTI with sepsis. He had been self cathing 2-3 times a day due to urinary retention secondary to BPH. He now has an indwelling barrera and he denies any problems with it. He desires to leave in place at this time. He reports a poor appetite for the last 3 days. He had a fever this morning and has had very small BMs for the last 3 days. He denies headache, sore throat , abdominal pain, flank pain, genital pain, nausea, vomiting, diarrhea, leg pain , or other concerns. He reports a long history (since ) of coughing and shortness of breath with getting any cold air or feeling chilled. He reports it has been worked up by pulmonology, ENT, Allergists without etiology found. He reports he does not feel short of breath and that his breathing feels normal to him. Functional Status: Reports: Tolerating Diet, Other (barrera cath in place, bothersome) - Review of Systems General: Reports: Other (he had chills last night.). Denies: Fever Pulmonary: Reports: Cough. Denies: Shortness of Breath (Pt denies shortness of breath in spite of resp rate 32), Wheezing Cardiovascular: Reports: No Symptoms Gastrointestinal: Reports: No Symptoms Genitourinary: Reports: Other (barrera cath in place) Psychiatric: Reports: No Symptoms - Patient Data Vitals - Most Recent: Last Vital Signs Temp 97.2 F 04/13/18 07:04 Pulse 120 H 04/13/18 06:52 Resp 36 H 04/13/18 06:52 BP 142/91 H 04/13/18 06:52 Pulse Ox 92 L 04/13/18 06:52 temp 101.5 at 6:30 am Weight - Most Recent: 222 lb 11.2 oz I&O - Last 24 Hours: Intake & Output 04/12/18 04/13/18 04/13/18 22:59 06:59 14:59 Intake Total 700 650 Output Total 175 300 Balance 525 350 Lab Results Last 24 Hours: Laboratory Results - last 24 hr 04/13/18 04/13/18 Range/Units 07:30 07:30 WBC 12.54 H (5.00-10.00) 10^3/uL RBC 4.24 L (4.50-6.00) 10^6/uL Hgb 13.0 (13.0-17.0) g/dL Hct 36.7 L (40.0-52.0) % MCV 86.6 (82.0-92.0) fL MCH 30.7 (27.0-31.0) pg MCHC 35.4 (32.0-36.0) g/dL RDW 15.0 H (11.5-14.5) % Plt Count 191 (150-400) 10^3/uL MPV 8.8 (7.4-10.4) fL Add Manual Diff Yes Neutrophils % (Manual) 89 H (50-70) % Band Neutrophils % 7 (4-12) % Lymphocytes % (Manual) 1 L (20-40) % Monocytes % (Manual) 3 (2-8) % Absolute Neutrophils 11.16 Band Neutrophils # 0.88 Lymphocytes # (Manual) 0.13 Monocytes # (Manual) 0.38 Sodium 136 (136-145) mmol/L Potassium 3.3 (3.3-5.3) mmol/L Chloride 100 (98-115) mmol/L Carbon Dioxide 20.0 L (21.0-32.0) mmol/L Anion Gap 19.3 H (5-15) mmol/L BUN 19 (6-25) mg/dL Creatinine 1.05 (0.51-1.17) mg/dL Est Cr Clr Drug Dosing 69.75 mL/min Estimated GFR (MDRD) > 60 mL/min Glucose 132 H (75 - 99) mg/dL Calcium 7.8 L (8.7-10.3) mg/dL Total Bilirubin 1.0 (0.2-1.0) mg/dL AST 37 (15-37) U/L ALT 47 (12-78) U/L Alkaline Phosphatase 57 (46-116) IU/L Total Protein 6.4 (6.4-8.2) g/dL Albumin 2.51 L (3.00-4.80) g/dL Lm Results Last 24 Hours: Microbiology 04/12/18 08:15 Aerobic Blood Culture - Preliminary Blood - Venous - Lab Draw NO GROWTH AFTER 1 DAY Anaerobic Blood Culture - Preliminary NO GROWTH AFTER 1 DAY 04/12/18 07:35 Aerobic Blood Culture - Preliminary Blood - Venous NO GROWTH AFTER 1 DAY Anaerobic Blood Culture - Preliminary NO GROWTH AFTER 1 DAY Med Orders - Current: Current Medications Acetaminophen (Tylenol Extra Strength) 500 mg PO Q6H PRN PRN Reason: temp >100.0 Last Admin: 04/13/18 06:34 Dose: 500 mg Azithromycin (Zithromax) 500 mg PO NOW STA Stop: 04/13/18 11:02 Azithromycin (Zithromax) 250 mg PO DAILY [facility] Stop: 04/17/18 09:01 Ceftriaxone Sodium (Rocephin) 2 gm IVPUSH Q24H [facility] Last Admin: 04/12/18 18:14 Dose: 2 gm Dutasteride (Avodart) 0.5 mg PO DAILY [facility] Last Admin: 04/13/18 09:17 Dose: 0.5 mg Enoxaparin Sodium (Lovenox) 40 mg SUBCUT Q24H [facility] Last Admin: 04/12/18 11:39 Dose: 40 mg Guaifenesin/Codeine Phosphate (Robitussin Ac) 5 ml PO Q4H PRN PRN Reason: Cough Last Admin: 04/13/18 07:04 Dose: 5 ml Guaifenesin/Phenylephrine HCl (Robitussin Dm) 10 ml PO Q4H PRN PRN Reason: Cough Last Admin: 04/12/18 20:10 Dose: 10 ml Hydrochlorothiazide (Hydrochlorothiazide) 12.5 mg PO DAILY [facility] Hydrochlorothiazide (Hydrochlorothiazide) 12.5 mg PO DAILY [facility] Vancomycin HCl 1.25 gm/ Sodium (Chloride) 250 mls @ 166.667 mls/hr IV Q12H [facility] Last Admin: 04/12/18 22:48 Dose: 166.667 mls/hr Ketorolac Tromethamine (Toradol) 30 mg IVPUSH Q6H PRN PRN Reason: Pain Stop: 04/16/18 01:43 Last Admin: 04/11/18 22:48 Dose: 30 mg Losartan Potassium (Cozaar) 50 mg PO DAILY [facility] Losartan Potassium (Cozaar) 50 mg PO DAILY [facility] Melatonin (Melatonin) 3 mg PO BEDTIME [facility] Last Admin: 04/12/18 20:10 Dose: 3 mg Menthol ([place] Sugar Free) 1 sanaz PO ASDIRECTED PRN PRN Reason: Cough Last Admin: 04/12/18 20:10 Dose: 1 sanaz Omeprazole (Omeprazole) 20 mg PO ACBREAKFAST [facility] Last Admin: 04/13/18 08:18 Dose: 20 mg Potassium Chloride (Klor-Con 10) 20 meq PO ONETIME ONE Stop: 04/13/18 11:05 Simvastatin (Zocor) 20 mg PO DAILY [facility] Last Admin: 04/13/18 09:17 Dose: 20 mg Sodium Chloride (Saline Flush) 10 ml FLUSH Q8HR PRN PRN Reason: keep vein open Last Admin: 04/12/18 18:14 Dose: 10 ml Tamsulosin HCl (Flomax) 0.4 mg PO PCBREAKFAST [facility] Last Admin: 04/13/18 09:17 Dose: 0.4 mg Vancomycin HCl (Pharmacy To Dose - Vancomycin) 1 dose .XX ONETIME ONE Stop: 04/11/18 22:57 Discontinued Medications Acetaminophen (Tylenol) 650 mg PO NOW ONE Stop: 04/09/18 19:38 Last Admin: 04/09/18 19:48 Dose: 650 mg Ceftriaxone Sodium (Rocephin) 1 gm IVPUSH ONETIME ONE Stop: 04/09/18 20:34 Last Admin: 04/09/18 20:51 Dose: 1 gm Hydrochlorothiazide (Hydrochlorothiazide) 12.5 mg PO DAILY [facility] Last Admin: 04/10/18 12:34 Dose: Not Given Sodium Chloride (Normal Saline) 1,000 mls @ 999 mls/hr IV .BOLUS ONE Stop: 04/09/18 20:37 Last Admin: 04/09/18 19:46 Dose: 999 mls/hr Sodium Chloride (Normal Saline) 1,000 mls @ 125 mls/hr IV ASDIRECTED [facility] Last Admin: 04/11/18 05:10 Dose: 125 mls/hr Ibuprofen (Motrin) 600 mg PO ONETIME ONE Stop: 04/09/18 20:48 Last Admin: 04/09/18 20:53 Dose: 600 mg Lorazepam (Ativan) 0.5 mg IVPUSH Q6H PRN PRN Reason: Anxiety Last Admin: 04/11/18 03:58 Dose: 0.5 mg Polyethylene Glycol (Miralax) 17 gm PO ONETIME ONE Stop: 04/12/18 10:18 Last Admin: 04/12/18 11:14 Dose: Not Given Polyethylene Glycol (Miralax) 17 gm PO ONETIME ONE Stop: 04/12/18 19:21 Last Admin: 04/12/18 19:33 Dose: 17 gm Potassium Chloride (Klor-Con 10) 20 meq PO ONETIME ONE Stop: 04/12/18 10:35 Last Admin: 04/12/18 11:08 Dose: 20 meq - Exam Quality Assessment: Supplemental Oxygen (O2 sats 94% on 2 l oxygen by NC) General: Alert, Oriented Lungs: Clear to Auscultation, Other (resp rate 32) Cardiovascular: Regular Rhythm, Other (rate 100 BPM) GI/Abdominal Exam: Soft, Non-Tender (Male) Exam: Other (barrera cath draining slightly dark kailyn urine. clear.) Extremities: Normal Inspection, No Pedal Edema Psy/Mental Status: Alert, Normal Affect, Normal Mood - Problem List Review Problem List Initiated/Reviewed/Updated: Yes - My Orders Last 24 Hours: My Active Orders 04/12/18 20:50 Codeine/guaiFENesin [Robitussin AC] 5 ml PO Q4H PRN 04/13/18 10:53 Urinary Catheter Assessment [RC] ASDIRECTED Urinary Catheter Removal [RC] Per Unit Routine 04/13/18 11:00 Insert Urinary Catheter [OM.PC] QID Losartan [Cozaar] 50 mg PO DAILY hydroCHLOROthiazide 12.5 mg PO DAILY 04/13/18 11:01 Azithromycin [Zithromax] 500 mg PO NOW STA 04/13/18 11:04 Potassium Chloride [Klor-Con 10] 20 meq PO ONETIME ONE 04/14/18 05:00 BASIC METABOLIC PANEL,BMP [CHEM] Routine CBC WITH AUTO DIFF [HEME] Routine 04/14/18 09:00 Azithromycin [Zithromax] 250 mg PO DAILY - Plan Plan:: HPI summary: Mr. Wilkerson is a 73yoM with a history of BPH with urinary retention for which he had prior indwelling urinary catheter and most recently self catheterizing who presented to the ED for fever. He was in his usual state of health up until 24 hours prior to presentation when he started developing a dry cough, diaphoresis , and generalized weakness. He had also been having decreased oral intake and a longer interval than usual between self catheterizations due to being in a card tournament. ED course: He had an initial temperature of 101.8 with tachycardia, tachypnea, and low end BP. Although WBC was normal, he did have neutrophilia. Remainder of labs notable for mildly increased lactic acid of 2.4. UA suggestive of infection. Presentation was thought to be highly suggestive of a urologic infection. Blood and urine cultures were obtained and ceftriaxone 1g given. He was admitted for further monitoring and management. Hospitalization problems and plan: # Sepsis: Initial qSOFA = 2, now = 1 with resolution of confusion, but persistent intermittent tachypnea. Fever on initial presentation without recurrence. He had initial low BPs, which improved with IVF. # Tachypnea: Pt reports a long history (since 1970s) of tachypnea with coughing every time he gets chilled. He reports it has been worked up by pulmonology, allergy and ENT without any etiology found. His only treatment that he has found that works is using warm air blowing in his face and warming up. He had robitussin with codeine last night, warmed up and coughing resolved. However, his tachypnea continues. He is on O2 at 2l/nc with O2 sats 94%. Chest Xray this morning showing bibasilar hypoventilatory changes and small bilateral effusions which are new since admission. We are restarting his hctz. # Hypertension: pt was on losartan/hctz at home. Antihypertensives were stopped at time of sepsis. BP 142/91 today. Will restart losartan/hctz. # Bacteremia: Gram negative rods and gram positive cocci, awaiting susceptibilities. Continuing rocephin 2 gm q 24 hrs. and Vancomycin for Gram Pos cocci coverage. Blood cultures repeated yesterday to ensure clearance have returned no growth in first 24 hrs. # Bacteriuria: Gram negative rods, awaiting susceptibilities. Continue ceftriaxone. # Elevated lactate: Admission lactate 2.4, returned to WNL at 0.8 on 04/12/18. # Hypokalemia: One time dose of KCl 20 MEq po yesterday brought potassium up to low nl. Will give another dose of KCl 20 mEq today and recheck BMP in am. # Leukocytosis and Neutrophilia: On admission WBC was WNL at 7.07 with neutrophilia 88%. Neutrophils were WNL at 6.10 yesterday. Today the WBC is now elevated to 12.54 with increased neutrophilia at 89%. Will start on Azithromycin for possible pulmonary source of infection and repeat CBC tomorrow. # Cough: Long standing history of cough when he gets chilled, however review of his clinic records shows resp rate 12-18, whereas it is 28-36 in the hospital. Initial CXR showed pulmonary vascular congestion, repeat CXR today is showing bibasilar hypoventilatory changes with small bilateral effusions. No infiltrates noted. We are restarting his hctz. He is on Rocephin IV for UTI gram neg rods. Given the new leukocytosis, will also start Azithromycin to cover possible pulmonary source of infections # Mild diastolic dysfunction: Echo 2016 finding along with mildly dilated right atrium. No prior clinical history of heart failure. Restarting losartan/hctz. # Acute kidney injury, resolved: Baseline Cr 1. Admission Cr 1.52. renal functions all WNL today. # BPH with urinary retention. Pt is willing to return to to intermittent straight catheterization. Will discontinue barrera and change to qid straight cath. Continue dutasteride and tamsulosin # Hyperbilirubinemia: resolved. Admission 1.2. WNL at 1.0 today. # Elevated AST: 57 yesterday. WNL today at 37. # Confusion, resolved - Continue to wait for blood and urine culture susceptibilities. Call to lab to verify there is no report available yet. - IVF have been discontinued. Continue saline lock for antibiotics. Clinical and laboratory markers of sepsis and dehydration now resolved Chronic, stable conditions: # HTN: Restart losartan 50/hctz 12.5 mg daily. # HLD: Continue simvastatin. Has been taking for over 7 years without initial lipid panel available to determine risk. Hospitalization details: # FEN: Saline lock IVF, as above. Electrolytes-hypokalmia resolved today. Borderline hypokalemia. Will give another dose of KCl and recheck tomorrow. Regular diet. # PPX: Enoxaparin for DVT ppx. Omeprazole for GI ppx. Melatonin for delirium ppx. # Code status: FULL. # Emergency contact: , Debbie. # Disposition: Continue in inpatient status. Needs ongoing close monitoring of clinical status in setting of sepsis and bacteremia, at least until culture susceptibility are obtained. He is anxious to get home, but in light of new onset of leukocytosis, he is willing to stay another night. Anticipate discharge to home when ready.
[2018-04-13] MEDS ORDERED: Polyethylene Glycol 3350 Powder 238 GM Bot PO PRN (11:45)
[2018-04-13] MEDS: Losartan 50 MG Tab PO SCH (11:57)
[2018-04-13] MEDS: Hydrochlorothiazide 12.5 MG Cap PO SCH (11:57)
[2018-04-13] MEDS: Enoxaparin 40 MG/0.4 ML Syringe SUBCUT SCH (11:58)
--- NOTE | 2018-04-13 13:03 | PCM.SN ---
- Free Text/Narrative Note: Pt has BPH and urinary retention. He had been self cathing at home with caude catheters. There is an inadequate number of caude catheters in the hospital for straight cath qid at this time. Will keep barrera inserted and hold on intermittent cath schedule until pt is discharged.
[2018-04-13] MEDS: cefTRIAXone 2 GM Vial IVPUSH SCH (18:21)
[2018-04-13] MEDS: Sodium Chloride 0.9% 10 ML Syringe FLUSH PRN (18:23)
[2018-04-13] MEDS ORDERED: Polyethylene Glycol 3350 Powder 17 GM Packet PO PRN (18:41)
[2018-04-13] MEDS ORDERED: Polyethylene Glycol 3350 Powder 238 GM Bot PO SCH (18:45)
[2018-04-13] MEDS: Ketorolac 30 MG/ML SDV IVPUSH PRN (20:03)
[2018-04-13] MEDS: Melatonin 3 MG Tab PO SCH (20:03)
[2018-04-14] MEDS: Codeine/guaiFENesin 100-10 MG/5 ML Syrup 5 ML Cup PO PRN (00:56)
[2018-04-14] MEDS: Ketorolac 30 MG/ML SDV IVPUSH PRN (01:55)
[2018-04-14] MEDS: Acetaminophen 500 MG Tab PO PRN (02:01)
[2018-04-14] MEDS: Omeprazole 20 MG Cap.CR PO SCH (07:38)
[2018-04-14 07:51] LABS: ANION GAP 17.8 mmol/L (5-15); CHLORIDE,CL 102 mmol/L (98-115); SODIUM,NA 138 mmol/L (136-145)
[2018-04-14] MEDS: Dutasteride 0.5 MG Cap PO SCH (08:59)
[2018-04-14] MEDS: Tamsulosin 0.4 MG Cap.ER PO SCH (08:59)
[2018-04-14] MEDS: Simvastatin 20 MG Tab PO SCH (08:59)
[2018-04-14] MEDS ORDERED: Azithromycin 250 MG Tab PO SCH (09:00)
[2018-04-14] MEDS: Losartan 50 MG Tab PO SCH (09:00)
[2018-04-14] MEDS: Hydrochlorothiazide 12.5 MG Cap PO SCH (09:01)
[2018-04-14] MEDS: Sodium Chloride 0.9% 10 ML Syringe FLUSH PRN (10:50)
[2018-04-14] MEDS ORDERED: Potassium Bicarbonate/Potassium Chloride 25 MEQ Tab.Eff PO SCH (11:00)
[2018-04-14] MEDS: Enoxaparin 40 MG/0.4 ML Syringe SUBCUT SCH (11:20)
--- NOTE | 2018-04-14 11:32 | PCM.DCSUM1 ---
Discharge Summary - Hospital Course Diagnosis: Stroke: No - Discharge Data Discharge Date: 04/14/18 Discharge Disposition: Home, Self-Care 01 Condition: Good - Patient Instructions Diet: Usual Diet as Tolerated, Drink 8-10+ Glasses/Day Activity: As Tolerated, Cough & Deep Breathe Driving: May Drive Today Showering/Bathing: May Shower Notify Provider of: Fever, Nausea and/or Vomiting Other/Special Instructions: You will be scheduled for an injection Saturday and at the [facility] (formerly [facility]3] at 3pm. - Discharge Plan *PRESCRIPTION DRUG MONITORING PROGRAM REVIEWED*: Not Applicable *COPY OF PRESCRIPTION DRUG MONITORING REPORT IN PATIENT RUSS: Not Applicable Prescriptions/Med Rec: Sulfamethoxazole/Trimethoprim [Bactrim Ds Tablet] 1 each PO BID #10 tablet Home Medications: Home Meds Dutasteride 0.5 mg PO DAILY 04/09/18 [History] Losartan/Hydrochlorothiazide [Losartan-HCTZ 50-12.5 MG] 1 tab PO DAILY 04/09/18 [History] Simvastatin 20 mg PO DAILY 04/09/18 [History] Sulfamethoxazole/Trimethoprim [Bactrim Ds Tablet] 1 each PO BID #10 tablet 04/14 [Rx] Forms: ED Department Discharge Referrals: Memo Arevalo PA-C [Primary Care Provider] - (Mid to late week with Memo in [place] or [place] ) - Discharge Summary/Plan Comment DC Time >30 min.: Yes Discharge Summary/Plan Comment: Final diagnosis Sepsis, Bacteriuria: Gram negative rods, Bacteriuria/catheter related UTI Tachypnea, chronic Leukocytosis and Neutrophilia, improving Acute kidney injury, resolved Hyperbilirubinemia: resolved BPH with urinary retention Pyuria, >50 WBC noted. History summary Roberto is a 73-year-old patient who was admitted through the ED when he came in for fever. Patient was in his usual state of health up until 24 hours upon presentation when he started developing a cough, diaphoresis and some weakness. Patient has BPH with urinary retention in which he self catheterizes himself up to 4 times a day, however does admit to some decreased oral intake and being in a card game tournament which he does admit waiting longer before self catheterization. Patient denies chest pain, shortness of breath, abdominal pain , flank pain, testicular pain, ill contacts, or bowel changes. ED course Patient presented to ED with documented temperature 101.8 with tachycardia, initial BP reading of 120/53 with increased RR with decreasingn BP later into admission. O2 saturations 93% however required 10 L of oxygen patient was somewhat confused and does not remember much leading up to the events. Although WBC was normal he did have neutrophilia, Reviewing his UA appears consistent with sx and highly suggestive of a urological etiology. Blood cultures urine cultures were obtained, Rocephin was given in ED. Hospital course The patient was septic requiring IV fluids, IV antibiotics, blood cultures and close monitoring. Phillips catheter was placed do to strict intake and output. qSOFA 2/2/3 now early on improved to 1/3 by the time I assessed the patient the following morning. He did require oxygen 10 L as the patient was confused and did not remember much leading up to the events of early admission. Reviewing his UA day of admission it appeared consistent with sx and highly suggestive of a urological etiology. Blood cultures urine cultures were obtained, Rocephin was given in ED. blood pressure medicines were held due to sepsis. He was given DVT prophylaxis with low molecular weight heparin. GI prophylaxis was given with PPI therapy. Gram negative rods and gram positive cocci, UA demonstrated Gram negative rods, however specific sensitivities never returned prior to him discharging. He did have an ongoing cough however there was no obvious pulmonary infection however he was started on azithromycin. 5 L positive fluid liver no signs and symptoms of overload with initial chest x-ray showing pulmonary vascular. congestion. Pulmonary toileting was provided. He did have mild acute renal kidney injury however that resolved. 72 hours after the initial start of antibiotics his white count did elevate over 12,000, prompting azithromycin to be added. This was slightly improved upon discharge. With decreasing neutrophilia upon discharge. His potassium was 3.2 on the day of discharge however he was given a one-time 25 mEq prior to discharge. Patient does have a chronic cough, since 1970's, has had it worked up by allergists, ENT and no one has found etiology. States if there is any cold air he starts coughing. States the only thing he has found that helps his cough is sleeping with warm air blowing in his face. He is now sleeping with the head of the bed elevated in an attempt to prevent the cough and to help with his breathing. He continues to insist that this is his normal breathing, that he has no shortness of breath in spite of resp rate 24-28. He states "if you try to figure out why I have this breathing before you let me out, I will never be able to go home." Vancomycin trough was subtherapeutic and this was adjusted and increased dosage on the day of discharge--since positive cocci in blood culture was subtherapeutic vancomycin dosage possible etiology of increasing white count on day 3 of admission Medication changes/adjustments upon discharge Rocephin outpatient 1 g daily 3 days Bactrim DS 1 tab by mouth twice a day 5 days newly added Discontinue azithromycin Disposition Patient will be discharged from the hospital, Phillips catheter will be removed and he can continue with self-catheterization at home. Rocephin outpatient Follow-up with [facility], provider to follow-up on blood cultures and sensitivities - General Info Functional Status: Reports: Pain Controlled, Tolerating Diet, Ambulating. Denies: Urinating - Review of Systems General: Denies: Fever, Weakness, Fatigue (Dwelling Phillips catheter) HEENT: Reports: No Symptoms Pulmonary: Reports: Cough. Denies: Shortness of Breath, Wheezing Cardiovascular: Reports: No Symptoms Gastrointestinal: Reports: No Symptoms Genitourinary: Reports: Retention Musculoskeletal: Reports: No Symptoms Skin: Reports: No Symptoms Neurological: Reports: No Symptoms Psychiatric: Reports: No Symptoms - Patient Data Vitals - Most Recent: Last Vital Signs Temp 98.2 F 04/14/18 11:00 Pulse 85 04/14/18 11:00 Resp 22 H 04/14/18 11:00 BP 116/63 04/14/18 11:00 Pulse Ox 92 L 04/14/18 11:00 Weight - Most Recent: 222 lb 11.2 oz I&O - Last 24 hours: Intake & Output 04/13/18 04/14/18 04/14/18 22:59 06:59 14:59 Intake Total 300 340 Output Total 400 200 Balance -100 140 Lab Results - Last 24 hrs: Laboratory Results - last 24 hr 04/13/18 04/14/18 04/14/18 Range/Units 11:10 07:14 07:14 WBC 12.30 H (5.00-10.00) 10^3/uL RBC 4.02 L (4.50-6.00) 10^6/uL Hgb 12.3 L (13.0-17.0) g/dL Hct 35.6 L (40.0-52.0) % MCV 88.6 (82.0-92.0) fL MCH 30.6 (27.0-31.0) pg MCHC 34.6 (32.0-36.0) g/dL RDW 15.4 H (11.5-14.5) % Plt Count 214 (150-400) 10^3/uL MPV 9.1 (7.4-10.4) fL Immature Gran % (Auto) 0.7 (0.0-5.0) % Neut % (Auto) 76.9 H (50.0-70.0) % Lymph % (Auto) 13.9 L (20.0-40.0) % [place] % (Auto) 7.2 (2.0-8.0) % Eos % (Auto) 1.1 (1.0-3.0) % Baso % (Auto) 0.2 (0.0-1.0) % Immature Gran # (Auto) 0.08 (0.00-0.50) 10^3/uL Neut # (Auto) 9.46 H (2.50-7.00) 10^3/uL Lymph # (Auto) 1.71 (1.00-4.00) 10^3/uL [place] # (Auto) 0.89 H (0.10-0.80) 10^3/uL Eos # (Auto) 0.13 (0.10-0.30) 10^3/uL Baso # (Auto) 0.03 (0.00-0.10) 10^3/uL Sodium 138 (136-145) mmol/L Potassium 3.2 L (3.3-5.3) mmol/L Chloride 102 (98-115) mmol/L Carbon Dioxide 21.4 (21.0-32.0) mmol/L Anion Gap 17.8 H (5-15) mmol/L BUN 25 (6-25) mg/dL Creatinine 1.18 H (0.51-1.17) mg/dL Est Cr Clr Drug Dosing 62.07 mL/min Estimated GFR (MDRD) > 60 mL/min Glucose 97 (75 - 99) mg/dL Calcium 8.1 L (8.7-10.3) mg/dL Vancomycin Trough 9.5 L (10-20) ug/mL MARJORIE Results - Last 24 hrs: Microbiology 04/12/18 08:15 Aerobic Blood Culture - Preliminary Blood - Venous - Lab Draw NO GROWTH AFTER 2 DAYS Anaerobic Blood Culture - Preliminary NO GROWTH AFTER 2 DAYS 04/12/18 07:35 Aerobic Blood Culture - Preliminary Blood - Venous NO GROWTH AFTER 2 DAYS Anaerobic Blood Culture - Preliminary NO GROWTH AFTER 2 DAYS Med Orders - Current: Current Medications Acetaminophen (Tylenol Extra Strength) 500 mg PO Q6H PRN PRN Reason: temp >100.0 Last Admin: 04/14/18 02:01 Dose: 500 mg Azithromycin (Zithromax) 250 mg PO DAILY [facility] Stop: 04/17/18 09:01 Last Admin: 04/14/18 08:59 Dose: 250 mg Ceftriaxone Sodium (Rocephin) 2 gm IVPUSH Q24H [facility] Last Admin: 04/13/18 18:21 Dose: 2 gm Dutasteride (Avodart) 0.5 mg PO DAILY [facility] Last Admin: 04/14/18 08:59 Dose: 0.5 mg Enoxaparin Sodium (Lovenox) 40 mg SUBCUT Q24H [facility] Last Admin: 04/13/18 11:58 Dose: 40 mg Guaifenesin/Codeine Phosphate (Robitussin Ac) 5 ml PO Q4H PRN PRN Reason: Cough Last Admin: 04/14/18 00:56 Dose: 5 ml Guaifenesin/Phenylephrine HCl (Robitussin Dm) 10 ml PO Q4H PRN PRN Reason: Cough Last Admin: 04/12/18 20:10 Dose: 10 ml Hydrochlorothiazide (Hydrochlorothiazide) 12.5 mg PO DAILY [facility] Last Admin: 04/14/18 09:01 Dose: 12.5 mg Vancomycin HCl 1.25 gm/ Sodium (Chloride) 250 mls @ 166.667 mls/hr IV Q12H [facility] Last Admin: 04/14/18 10:50 Dose: 166.667 mls/hr Ketorolac Tromethamine (Toradol) 30 mg IVPUSH Q6H PRN PRN Reason: Pain Stop: 04/16/18 01:43 Last Admin: 04/14/18 01:55 Dose: 30 mg Losartan Potassium (Cozaar) 50 mg PO DAILY [facility] Last Admin: 04/14/18 09:00 Dose: 50 mg Melatonin (Melatonin) 3 mg PO BEDTIME [facility] Last Admin: 04/13/18 20:03 Dose: 3 mg Menthol ([place] Sugar Free) 1 sanaz PO ASDIRECTED PRN PRN Reason: Cough Last Admin: 04/12/18 20:10 Dose: 1 sanaz Omeprazole (Omeprazole) 20 mg PO ACBREAKFAST [facility] Last Admin: 04/14/18 07:38 Dose: 20 mg Polyethylene Glycol (Miralax) 17 gm PO BEDTIME PRN PRN Reason: Constipation Last Admin: 04/13/18 18:15 Dose: 17 gm Potassium Bicarb/Potassium Chloride (Potassium Chloride, Effervescent) 25 meq PO DAILY [facility] Simvastatin (Zocor) 20 mg PO DAILY [facility] Last Admin: 04/14/18 08:59 Dose: 20 mg Sodium Chloride (Saline Flush) 10 ml FLUSH Q8HR PRN PRN Reason: keep vein open Last Admin: 04/14/18 10:50 Dose: 10 ml Tamsulosin HCl (Flomax) 0.4 mg PO PCBREAKFAST [facility] Last Admin: 04/14/18 08:59 Dose: 0.4 mg Vancomycin HCl (Pharmacy To Dose - Vancomycin) 1 dose .XX ONETIME [facility] Discontinued Medications Acetaminophen (Tylenol) 650 mg PO NOW ONE Stop: 04/09/18 19:38 Last Admin: 04/09/18 19:48 Dose: 650 mg Azithromycin (Zithromax) 500 mg PO NOW STA Stop: 04/13/18 11:02 Last Admin: 04/13/18 11:57 Dose: 500 mg Ceftriaxone Sodium (Rocephin) 1 gm IVPUSH ONETIME ONE Stop: 04/09/18 20:34 Last Admin: 04/09/18 20:51 Dose: 1 gm Hydrochlorothiazide (Hydrochlorothiazide) 12.5 mg PO DAILY [facility] Last Admin: 04/10/18 12:34 Dose: Not Given Hydrochlorothiazide (Hydrochlorothiazide) 12.5 mg PO DAILY [facility] Sodium Chloride (Normal Saline) 1,000 mls @ 999 mls/hr IV .BOLUS ONE Stop: 04/09/18 20:37 Last Admin: 04/09/18 19:46 Dose: 999 mls/hr Sodium Chloride (Normal Saline) 1,000 mls @ 125 mls/hr IV ASDIRECTED HORACE Last Admin: 04/11/18 05:10 Dose: 125 mls/hr Ibuprofen (Motrin) 600 mg PO ONETIME ONE Stop: 04/09/18 20:48 Last Admin: 04/09/18 20:53 Dose: 600 mg Lorazepam (Ativan) 0.5 mg IVPUSH Q6H PRN PRN Reason: Anxiety Last Admin: 04/11/18 03:58 Dose: 0.5 mg Losartan Potassium (Cozaar) 50 mg PO DAILY [facility] Polyethylene Glycol (Miralax) 17 gm PO ONETIME ONE Stop: 04/12/18 10:18 Last Admin: 04/12/18 11:14 Dose: Not Given Polyethylene Glycol (Miralax) 17 gm PO ONETIME ONE Stop: 04/12/18 19:21 Last Admin: 04/12/18 19:33 Dose: 17 gm Polyethylene Glycol (Miralax) 17 gm PO DAILY PRN PRN Reason: Constipation Polyethylene Glycol (Miralax) 17 gm PO DAILY [facility] Potassium Chloride (Klor-Con 10) 20 meq PO ONETIME ONE Stop: 04/12/18 10:35 Last Admin: 04/12/18 11:08 Dose: 20 meq Potassium Chloride (Klor-Con 10) 20 meq PO ONETIME ONE Stop: 04/13/18 11:05 Last Admin: 04/13/18 11:58 Dose: 20 meq - Exam Quality Assessment: Denies: Supplemental Oxygen General: Reports: Alert, Oriented, Cooperative Lungs: Reports: Clear to Auscultation, Normal Respiratory Effort Cardiovascular: Reports: Regular Rate, Regular Rhythm GI/Abdominal Exam: Soft (Male) Exam: No Hernia Rectal (Males) Exam: Deferred Back Exam: Denies: CVA Tenderness (L), CVA Tenderness (R) Extremities: No Pedal Edema Skin: Reports: Warm, Dry, Intact Neurological: Reports: No New Focal Deficit Psy/Mental Status: Reports: Alert, Normal Affect, Normal Mood
== END 2018-04-14 13:45 | disposition home or self-care (01) | DRG 698 ==
LOC: KA.ED 19:01 → KA.MS 21:18
PROVIDERS: ADMIT Physician Assistant Surgical; ATTEND Family Medicine
DX: T83.518A Infection and inflammatory reaction due to other urinary catheter, initial encounter (principal); R33.9 Retention of urine, unspecified; A41.50 Gram-negative sepsis, unspecified; N39.0 Urinary tract infection, site not specified; R50.9 Fever, unspecified; R06.02 Shortness of breath; R53.1 Weakness; R53.81 Other malaise; N17.9 Acute kidney failure, unspecified; Y84.6 Urinary catheterization as the cause of abnormal reaction of the patient, or of later complication, without mention of misadventure at the time of the procedure; E78.00 Pure hypercholesterolemia, unspecified; I10 Essential (primary) hypertension; N40.1 Benign prostatic hyperplasia with lower urinary tract symptoms; R33.8 Other retention of urine; E78.5 Hyperlipidemia, unspecified; Z16.12 Extended spectrum beta lactamase (ESBL) resistance; R05 Cough; E87.6 Hypokalemia; Z79.899 Other long term (current) drug therapy
CPT/HCPCS: 36415; 51701; 71045; 80053; 81001; 83605; 83880; 85025; 87040 ×2; 87077 ×4; 87086; 87088; 87804 ×2; 96360; 99284; 99285; A9270 ×2; J0696; J7030; 51702; 71046; 80048; 80202; 86141; J1650; J1885; J2060; J3370; J7050

== ENCOUNTER 2018-11-30 07:03 | Inpatient (IN) | payer MEDICARE, BC ==
[2018-11-30] MEDS ORDERED: Sodium Chloride 0.9% 1,000 ML IV ONE ×2 (07:50→21:55)
[2018-11-30] MEDS ORDERED: Sodium Chloride 0.9% 10 ML Syringe FLUSH PRN (07:50)
[2018-11-30] MEDS ORDERED: Acetaminophen 500 MG Tab PO ONE (08:00)
--- NOTE | 2018-11-30 08:01 | EDM.PDOC ---
ED HPI GENERAL MEDICAL PROBLEM - General Chief Complaint: General Stated Complaint: chills, shaking Time Seen by Provider: 11/30/18 07:30 Source of Information: Reports: Patient, EMS History Limitations: Reports: No Limitations - History of Present Illness INITIAL COMMENTS - FREE TEXT/NARRATIVE: 73 YO WM presents to ER with complaints of fever/chills and diaphoresis which began last night. Pt reports he began feeling ill 2 days ago with nausea/ vomiting x 1, urinary frequency and urgency. Pt with history of UTI's in the past. Pt also with nonproductive cough without congestion. Onset Date: 11/29/18 Duration: Day(s): (2) Location: Reports: Generalized Quality: Reports: Ache Severity: Mild Improves with: Reports: None Worsens with: Reports: None Associated Symptoms: Reports: Cough, Fever/Chills, Loss of Appetite, Malaise, Nausea/Vomiting, Weakness. Denies: Confusion, Chest Pain, cough w sputum, Headaches, Shortness of Breath, Syncope - Related Data Allergies Allergy/AdvReac Type Severity Reaction Status Date / Time No Known Drug Allergies Allergy Cannot Verified 11/30/18 07:41 Remember Home Meds: Home Meds Dutasteride 0.5 mg PO DAILY 04/09/18 [History] Losartan/Hydrochlorothiazide [Losartan-HCTZ 50-12.5 MG] 1 tab PO DAILY 04/09/18 [History] Simvastatin 20 mg PO DAILY 04/09/18 [History] Tamsulosin [Tamsulosin 24 Hr] 0.4 mg PO DAILY 11/30/18 [History] Past Medical History Cardiovascular History: Reports: High Cholesterol, Hypertension Gastrointestinal History: Reports: None Genitourinary History: Reports: Retention, Urinary, Other (See Below) Other Genitourinary History: self cath - Past Surgical History Head Surgeries/Procedures: Reports: None Cardiovascular Surgical History: Reports: None GI Surgical History: Reports: Hernia, Inguinal Male Surgical History: Reports: None Social & Family History - Family History Family Medical History: Noncontributory - Tobacco Use Smoking Status *Q: Never Smoker Second Hand Smoke Exposure: No - Caffeine Use Caffeine Use: Reports: Soda - Recreational Drug Use Recreational Drug Use: No ED ROS GENERAL - Review of Systems Review Of Systems: See Below Constitutional: Reports: Fever, Chills, Malaise, Weakness, Decreased Appetite HEENT: Reports: No Symptoms Respiratory: Reports: No Symptoms Cardiovascular: Reports: No Symptoms Endocrine: Reports: No Symptoms GI/Abdominal: Reports: Nausea, Vomiting. Denies: Abdominal Pain : Reports: Dysuria, Frequency, Urgency, Urinary Retention. Denies: Hematuria Musculoskeletal: Reports: No Symptoms Skin: Reports: No Symptoms Neurological: Reports: No Symptoms Psychiatric: Reports: No Symptoms Hematologic/Lymphatic: Reports: No Symptoms Immunologic: Reports: No Symptoms ED EXAM, GENERAL - Physical Exam Exam: See Below Exam Limited By: No Limitations General Appearance: Alert, WD/WN, No Apparent Distress Ears: Normal External Exam, Normal Canal, Hearing Grossly Normal, Normal TMs Nose: Normal Inspection, Normal Mucosa, No Blood Throat/Mouth: Normal Inspection, Normal Lips, Normal Teeth, Normal Gums, Normal Oropharynx, Normal Voice, No Airway Compromise Head: Atraumatic, Normocephalic Neck: Normal Inspection, Supple, Non-Tender, Full Range of Motion Respiratory/Chest: No Respiratory Distress, Lungs Clear, Normal Breath Sounds, No Accessory Muscle Use, Chest Non-Tender Cardiovascular: Normal Peripheral Pulses, Regular Rate, Rhythm, No Edema, No Gallop, No JVD, No Murmur, No Rub GI/Abdominal: Normal Bowel Sounds, Soft, Non-Tender, No Organomegaly, No Distention, No Abnormal Bruit, No Mass Back Exam: Normal Inspection, Full Range of Motion, NT Extremities: Normal Inspection, Normal Range of Motion, Non-Tender, Normal Capillary Refill, No Pedal Edema Neurological: Alert, Oriented, CN II-XII Intact, Normal Cognition, Normal Gait, Normal Reflexes, No Motor/Sensory Deficits Psychiatric: Normal Affect, Normal Mood Skin Exam: Warm, Dry, Intact, Normal Color, No Rash Lymphatic: No Adenopathy EKG INTERPRETATION EKG Date: 11/30/18 Time: 08:00 Rhythm: NSR Rate (Beats/Min): 122 [place]: Normal P-Wave: Present QRS: Normal ST-T: Normal QT: Normal Course - Vital Signs Last Recorded V/S: Last Vital Signs Temp 36.4 C 11/30/18 08:20 Pulse 122 H 11/30/18 08:20 Resp 25 H 11/30/18 08:20 BP 142/63 H 11/30/18 08:20 Pulse Ox 92 L 11/30/18 08:20 - Orders/Labs/Meds Orders: Active Orders 24 hr Category Date Time Status EKG Documentation Completion [RC] ASDIRECTED Care 11/30/18 07:51 Active Peripheral IV Care [RC] . DIRECTED Care 11/30/18 07:50 Active CULTURE BLOOD [BC] Stat Lab 11/30/18 08:00 Ordered CULTURE BLOOD [BC] Stat Lab 11/30/18 08:00 Ordered Sodium Chloride 0.9% [Saline Flush] Med 11/30/18 07:50 Active 10 ml FLUSH Q8HR PRN Blood Culture x2 Reflex Set [OM.PC] Stat Oth 11/30/18 08:00 Ordered Peripheral IV Insertion Adult [OM.PC] Routine Oth 11/30/18 07:50 Ordered EKG 12 Lead [EK] Routine Ther 11/30/18 07:50 Ordered Medication Orders Sodium Chloride (Saline Flush) 10 ml FLUSH Q8HR PRN PRN Reason: keep vein open Labs: Laboratory Tests 11/30/18 11/30/18 11/30/18 Range/Units 07:30 08:15 08:15 WBC 19.64 H (5.00-10.00) 10^3/uL RBC 4.78 (4.50-6.00) 10^6/uL Hgb 15.3 D (13.0-17.0) g/dL Hct 42.9 (40.0-52.0) % MCV 89.7 (82.0-92.0) fL MCH 32.0 H (27.0-31.0) pg MCHC 35.7 (32.0-36.0) g/dL RDW 13.2 (11.5-14.5) % Plt Count 214 (150-400) 10^3/uL MPV 8.8 (7.4-10.4) fL Add Manual Diff Yes Neutrophils % (Manual) 93 H (50-70) % Band Neutrophils % 6 (4-12) % Lymphocytes % (Manual) 0 L (20-40) % Monocytes % (Manual) 1 L (2-8) % Absolute Neutrophils 18.27 Band Neutrophils # 1.18 Monocytes # (Manual) 0.20 Sodium 138 (136-145) mmol/L Potassium 3.2 L (3.3-5.3) mmol/L Chloride 98 (98-115) mmol/L Carbon Dioxide 22.3 (21.0-32.0) mmol/L Anion Gap 20.9 H (5-15) mmol/L BUN 21 (6-25) mg/dL Creatinine 1.36 H (0.51-1.17) mg/dL Est Cr Clr Drug Dosing 53.85 mL/min Estimated GFR (MDRD) 51 mL/min Glucose 120 H (75 - 99) mg/dL Calcium 9.3 (8.7-10.3) mg/dL Specimen Type Urinvoid Urine Color Yellow (YELLOW) Urine Appearance Cloudy H (CLEAR) Urine pH 5.0 (5.0-9.0) Ur Specific [place] 1.020 (1.005-1.030) Urine Protein 100 H (NEGATIVE) mg/dL Urine Glucose (UA) Negative (NEGATIVE) mg/dL Urine Ketones Negative (NEGATIVE) mg/dL Urine Occult Blood Large H (NEGATIVE) Urine Nitrite Positive H (NEGATIVE) Urine Bilirubin Negative (NEGATIVE) Urine Urobilinogen 0.2 (0.2-1.0) E.U./dL Ur Leukocyte Esterase Moderate H (NEGATIVE) Urine RBC 5-10 H (0-5) /HPF Urine WBC Semi-packed (0-5) /HPF Ur Epithelial Cells Few /LPF Urine Bacteria Many H (NONE TO FEW) /HPF Meds: Medications Generic Name Dose Route Start Last Admin Trade Name Freq PRN Reason Stop Dose Admin Sodium Chloride 10 ml 11/30/18 07:50 Saline Flush FLUSH Q8HR PRN keep vein open Discontinued Medications Generic Name Dose Route Start Last Admin Trade Name Freq PRN Reason Stop Dose Admin Acetaminophen 1,000 mg 11/30/18 08:00 Tylenol Extra Strength PO 11/30/18 08:01 ONETIME ONE Ceftriaxone Sodium 1 gm 11/30/18 08:07 Rocephin IVPUSH 11/30/18 08:08 ONETIME ONE Sodium Chloride 1,000 mls @ 999 mls/hr 11/30/18 07:50 Normal Saline IV 11/30/18 08:50 .BOLUS ONE Departure - Departure Time of Disposition: 09:10 Disposition: Admitted As Inpatient 65 Condition: Fair Clinical Impression: UTI, Urinary tract infectious disease, Renal insufficiency, Hypokalemia Leukocytosis Qualifiers: Leukocytosis type: unspecified Qualified Code(s): D72.829 - Elevated white blood cell count, unspecified - Discharge Information Forms: ED Department Discharge - My Orders Last 24 Hours: My Active Orders 11/30/18 07:50 Peripheral IV Care [RC] . DIRECTED Sodium Chloride 0.9% [Saline Flush] 10 ml FLUSH Q8HR PRN Peripheral IV Insertion Adult [OM.PC] Routine EKG 12 Lead [EK] Routine 11/30/18 07:51 EKG Documentation Completion [RC] ASDIRECTED 11/30/18 08:00 CULTURE BLOOD [BC] Stat CULTURE BLOOD [BC] Stat Blood Culture x2 Reflex Set [OM.PC] Stat - Assessment/Plan Last 24 Hours: My Active Orders 11/30/18 07:50 Peripheral IV Care [RC] . DIRECTED Sodium Chloride 0.9% [Saline Flush] 10 ml FLUSH Q8HR PRN Peripheral IV Insertion Adult [OM.PC] Routine EKG 12 Lead [EK] Routine 11/30/18 07:51 EKG Documentation Completion [RC] ASDIRECTED 11/30/18 08:00 CULTURE BLOOD [BC] Stat CULTURE BLOOD [BC] Stat Blood Culture x2 Reflex Set [OM.PC] Stat Assessment:: 1. UTI 2. Leukocytosis 3. Hypokalemia 4. Renal insufficiency Plan: 1. admit to [facility] Memo Aguilar 2. rocephin 1g IV QD 3. blood cultures 4. supportive care
[2018-11-30] MEDS ORDERED: cefTRIAXone 1 GM Vial IVPUSH ONE ×2 (08:07→15:17)
[2018-11-30 08:40] LABS: ANION GAP 20.9 mmol/L (5-15)
--- NOTE | 2018-11-30 08:46 | CR ---
[id number] RAD/RAD Chest PA or AP 1V EXAM: RAD Chest PA or AP 1V INDICATION: CHILLS. COMPARISON: April 13, 2018. DISCUSSION: Cardiomediastinal silhouette is normal in size and contour. No infiltrate, effusion, pneumothorax, or edema. IMPRESSION: Negative for pneumonia or other acute findings in the chest. Gee Leonard MD 11/30/18 0844 Thank you for allowing us to participate in the care of your patient.
[2018-11-30] MEDS ORDERED: Dutasteride 0.5 MG Cap PO SCH (10:45)
[2018-11-30] MEDS ORDERED: Simvastatin 20 MG Tab PO SCH (10:45)
[2018-11-30] MEDS ORDERED: Losartan 50 MG Tab PO SCH (10:45)
[2018-11-30] MEDS ORDERED: Tamsulosin 0.4 MG Cap.ER PO SCH (10:45)
[2018-11-30] MEDS ORDERED: Hydrochlorothiazide 12.5 MG Cap PO ONE (11:45)
[2018-11-30] MEDS ORDERED: Losartan 50 MG Tab PO ONE (11:45)
[2018-11-30] MEDS ORDERED: Potassium Bicarbonate 25 MEQ Tab.EFF PO SCH (12:00)
--- NOTE | 2018-11-30 12:56 | HP ---
HISTORY OF PRESENT ILLNESS: This is a 73-year-old gentleman who lives at home. He has a long history of BPH. He does see Dr. Jerilyn Loyola in Urology down in [place]. He was actually scheduled to see her coming up this week. He says last time he went to go see her, they did a urinalysis and he still had infection, so he is unable to go and have procedure done at that time. I believe it was planned to have a TURP performed. The patient states the antibiotic given really did not get rid of his symptoms. He says starting 2 days ago he was going to the bathroom a lot about every 40 minutes he said. In the last day, he says his urine started to get bad smell. Last night, he was at home. He started to get really weak and sweaty, he called the EMS services. The patient then was brought to the emergency room at that time. PAST MEDICAL HISTORY: The patient does have a history of BPH, hypertension, and hyperlipidemia. MEDICATIONS: That he takes at home, he takes Zocor 20 mg daily, losartan 50 mg daily, HCTZ 12.5 mg daily, he also takes Avodart 0.5 mg daily along with Flomax 0.4 mg daily. ALLERGIES: He has no known drug allergies. SOCIAL/PERSONAL HISTORY: He is retired. Lives at home. Denies any alcohol or tobacco use. REVIEW OF SYSTEMS: CONSTITUTIONAL: He feels weak and kind of sweaty and chills. Appetite is poor. He just does not feel well. EYES: No recent visual changes. ENT: No sinus congestion or hoarseness. CARDIOVASCULAR: No chest pain or palpitations. RESPIRATORY: No cough. No shortness of breath. GI: No vomiting, diarrhea or melena. : He does complain of foul-smelling urine. MUSCULOSKELETAL: No new bone pain or joint swelling. INTEGUMENTARY: No rash or pruritus. NEUROLOGIC/PSYCHIATRIC: No recent headache or focal weakness. No depressive symptoms. ENDOCRINE: No heat or cold intolerances or polydipsia. HEMATOLOGIC/LYMPHATIC: No excessive bruising or lymph node swelling. ALLERGIC/IMMUNOLOGIC: No hives or recurrent infections. PHYSICAL EXAMINATION: GENERAL: This is an elderly white male, in no acute distress. VITAL SIGNS: His weight is 223 pounds. Temperature is 99.4, pulse rate is 101, blood pressure is 125/77, respiratory rate is 18, oxygen saturations on 2 L nasal cannula is 94%. HEENT: Head is normocephalic. EOMs are intact. Pupils are equal, round, reactive to light and accommodation. No pharyngeal erythema noted. Bilateral tympanic membranes are intact. Throat is clear. NECK: Supple. No JVD. Trachea midline. LUNGS: Lung sounds are clear throughout lung yanez. CARDIAC: Regular rate and rhythm. No murmurs identified. ABDOMEN: Soft, nontender, nondistended. Bowel sounds present x4. EXTREMITIES: No joint effusions. Full range of motion. DIAGNOSTIC: The patient's lab work that he had obtained in the emergency room shows, CBC shows a white count elevated at 19.6, hemoglobin 15.3. He does have percentage of neutrophils is 93. The patient's chemistry panel shows a potassium low at 3.2, creatinine elevated at 1.36, BUN 21. Urinalysis shows many bacteria, too many to count. IMPRESSION/PLAN: 1. Urinary tract infection. Plan: Blood cultures are pending along with urine culture. We are going to admit the patient. He did get Rocephin 1 g in the ER. We are going to give him IV every 24 hours. He can have some Tylenol as needed for fever. 2. Dehydration. Plan: The patient's creatinine is elevated at 1.36 and his GFR down to 51. He did get normal saline liter of bolus in the ER. I am going to run his IV fluids of normal saline at 150 mL an hour. 3. Hypokalemia. Plan: The patient's potassium in the ER was slightly low at 3.2. I am going to give him some potassium effervescent 25 mEq p.o. daily. He can have the first dose now. 4. History of severe benign prostatic hypertrophy. Plan: Continue with Avodart 0.5 mg daily along with Flomax 0.4 mg daily. We will try discharge, so he can follow up with Dr. Jerilyn Loyola in Urology in [place] later this week. The patient is able to void at this time, if we need to do a straight cath on him as needed. 5. History of hypertension. Plan: We will continue with losartan 50 mg daily and HCTZ 12.5 mg daily. His blood pressure seems to be doing okay now. 6. History of hyperlipidemia. Plan: We will continue with Zocor 20 mg daily. OVERALL PLAN: The patient is afebrile at this time. His temperature is come down to 97.2. He did already get his antibiotics and fluid bolus. He seems to be doing well. He is alert and orientated. We will see how he does tomorrow. We will repeat some lab work in the morning. /[id number]/MODL
[2018-11-30] MEDS: Sodium Chloride 0.9% 1,000 ML IV SCH ×2 (12:57→19:55)
[2018-11-30] MEDS ORDERED: LORazepam 2 MG/ML SDV IVPUSH ONE (14:58)
[2018-11-30] MEDS ORDERED: Ketorolac 30 MG/ML SDV IVPUSH ONE (15:06)
[2018-11-30] MEDS ORDERED: Acetaminophen 500 MG Tab ONE (15:07)
[2018-11-30] MEDS: Acetaminophen 500 MG Tab PO PRN ×2 (15:09→20:56)
[2018-11-30] MEDS ORDERED: Levofloxacin/Dextrose 5%-Water 500 MG in Premix Bag 1 BAG IV SCH (15:30)
[2018-11-30] MEDS ORDERED: Sodium Chloride 0.9% 250 ML IV SCH (15:30)
[2018-11-30] MEDS ORDERED: methylPREDNISolone Sodium Succinate 125 MG/2 ML SDV IVPUSH ONE (16:30)
[2018-12-01] MEDS ORDERED: DOPamine/Dextrose 5%-Water 400 MG/250 ML BAG IV SCH (00:30)
[2018-12-01] MEDS ORDERED: Sodium Chloride 0.9% 1,000 ML IV ONE (00:35)
--- NOTE | 2018-12-01 01:13 | PN ---
11/30/2018 PATIENT NAME: JEANINE CULLEN TIME OF SERVICE: 3:30 p.m. SUBJECTIVE: Nursing staff had called me and stated the patient was shaking uncontrollably and he could not stop shaking. The patient was alert and orientated. I was called to the hospital. When I arrived, the patient was shaking vigorously. The patient was having rigors, he has had rigors before. I gave him Ativan 0.5 mg IV along with Toradol 30 mg IV and 1 g of Tylenol p.o. The patient's rigors did stop within a reasonable time, within about 5 minutes after the IV medications were given. The patient's blood pressure at that time was elevated at 178/80, pulse was 112. He was very tachypneic. His respiratory rate was 44. I did have him breathe into a paper bag. I gave him a 250 mL bolus of normal saline. I did give him another gram of Rocephin IV and I started him on Levaquin 500 mg IV. I waited 1 hour and at approximately 4:30 he was given 40 mg of Solu-Medrol IV. The patient's temperature did go up. Prior to the rigors, his temperature was normal. His temperature went up as high as 101.7 around 3:35 and then eventually did come down. I called nursing staff around 8:00 p.m. At that time, his temperature had come down to 99.7, his pulse was 109, blood pressure was 125/71, O2 sats were 97%. Nursing staff stated the patient was doing better at that time. /[id number]/MODL MTDD
[2018-12-01] MEDS ORDERED: DOPamine/Dextrose 5%-Water 0 MG/0 ML BAG ONE (03:21)
[2018-12-01] MEDS ORDERED: Hydrochlorothiazide 12.5 MG Cap PO SCH (09:00)
[2018-12-01] MEDS ORDERED: cefTRIAXone 1 GM Vial IVPUSH SCH (09:00)
--- NOTE | 2018-12-01 09:53 | DISCH ---
ADMITTING DIAGNOSIS: urinary tract infection. FINAL DIAGNOSIS: Urosepsis. BRIEF HISTORY AND ESSENTIAL PHYSICAL FINDINGS: This is a 73-year-old gentleman who has a long history of incomplete bladder emptying with BPH. He does see Jerilyn oLyola in Urology at [facility] in [place], where he states the last time he went for appointment, they were going to consider doing a TURP on him, but he continued to have a bladder infection. He was placed on antibiotic. He states about two days ago, he was starting to go to the bathroom frequently and that his urine became smelly. Before eight o'clock this morning on Saturday, he was not feeling well so he called the ambulance. They took him to the emergency room. In the emergency room, he was found to have a white count elevated at 19.6. He was given 1 g Rocephin along with 1 L bolus of fluid in the ER. He was admitted. The patient had an episode of the rigors around 3:00 p.m. in the afternoon. He was given a 250 bolus of NS at that time. He was given another gram of Rocephin, started on Levaquin IV. He was given Toradol IV along with oral Tylenol. His rigors did subside. The patient was also given Solu-Medrol 40 mg IV an hour later after blood pressure seemed to respond well with fluids. His normal saline was running at 150 an hour. Approximately at around 11:45 p.m. on the , nursing staff had called me stating that the patient's blood pressure was low at 84/59. He was given another L bolus of normal saline. After the bolus was done, nursing staff had informed me the patient's blood pressure had dropped in the 70s systolic during the bolus. I had contacted Dr. Ba with Critical Services through [facility]. SIGNIFICANT LABS XRAYS AND CONSULTATION FINDINGS: The patient's lab work that was obtained in the emergency room showed white count elevated at 19.6, hemoglobin 15.3, he did have a shift in his neutrophils. Potassium was slightly low at 3.2, BUN 21, creatinine slightly elevated at 1.36, GFR 51. Urinalysis showed too many to count bacteria. The patient did have a chest x-ray performed in the ER, which the impression reads negative for pneumonia or other acute findings in the chest per Radiology. Lactic acid obtained shortly after midnight was elevated at 3.7. COURSE IN HOSPITAL WITH COMPLICATIONS IF ANY: The patient was doing well. He was watching football until around 3 o'clock when he had an episode of rigors. After he was given Ativan, Tylenol and Toradol, his rigors had subsided, and he went back to watching football. He actually ate supper. He was feeling fine, then patient started becoming hypotensive around 11:30 p.m. CONDITION TREATMENT AND FINAL DISPOSITION ON DISCHARGE AND PROGNOSIS: . IMPRESSION: 1. Urosepsis. The patient has a long history of this incomplete bladder emptying. I did call [facility] and talked to Dr. Ba in intensive care. He can be transferred to [place] by ambulance. We did place a Phillips catheter here. We gave another 500 mL bolus after all the other boluses that were mentioned above. They can start a dopamine drip either here or in the ambulance for on the ride, to titrate for blood pressure as needed. I did have lab draw a stat lactic acid and CBC prior to the ambulance coming to the hospital for transport. 2. History of severe BPH with incomplete bladder emptying. He can be continued with Avodart and Flomax, the patient is going to be transferred. Hold antihypertensive medications. Report was given to Dr. Ba in the ICU. He will be transferred by ambulance yet tonight, it is approximately 1:00 am right now. /[id number]/MODL MTDD
== END 2018-12-01 01:30 | DRG 690 ==
LOC: KA.ED 07:03 → KA.MS 09:11
PROVIDERS: ADMIT Physician Assistant Medical; ATTEND Physician Assistant
DX: N39.0 Urinary tract infection, site not specified (principal); N40.1 Benign prostatic hyperplasia with lower urinary tract symptoms; N28.9 Disorder of kidney and ureter, unspecified; R50.9 Fever, unspecified; R11.2 Nausea with vomiting, unspecified; R53.1 Weakness; R39.14 Feeling of incomplete bladder emptying; E86.0 Dehydration; E87.6 Hypokalemia; E78.5 Hyperlipidemia, unspecified; E78.00 Pure hypercholesterolemia, unspecified; I10 Essential (primary) hypertension; Z79.899 Other long term (current) drug therapy
CPT/HCPCS: 36415; 51702; 71045; 80048; 81001; 82962; 83605; 85025; 87040; 87077; 87086; 87088; 87186; 93005; 96360; 99284; 99285-25; A9270-GY; J0696; J1885; J1956; J2060; J2930; J7030; J7050

== ENCOUNTER 2021-04-03 12:48 | Observation (INO) | payer MEDICARE, BC ==
[2021-04-03] MEDS ORDERED: hydrALAZINE 20 MG/ML SDV IVPUSH ONE ×2 (13:02→13:52)
[2021-04-03] MEDS: Sodium Chloride 0.9% 10 ML Syringe FLUSH PRN ×4 (13:28→14:53)
[2021-04-03 14:01] LABS: ANION GAP 17.3 mmol/L (5-15); CHLORIDE,CL 103 mmol/L (98-107); SODIUM,NA 138 mmol/L (136-145)
[2021-04-03] MEDS ORDERED: Metoprolol Tartrate 5 MG/5 ML SDV IVPUSH ONE ×2 (14:21→14:44)
[2021-04-03] MEDS ORDERED: amLODIPine 5 MG Tab PO ONE (15:12)
[2021-04-03] MEDS: Carbamide Peroxide 6.5% Otic Soln 15 ML Bottle EARBOTH SCH ×2 (18:10→20:02)
[2021-04-03] MEDS: Acetaminophen 325 MG Tab PO PRN (20:01)
[2021-04-04] MEDS: Acetaminophen 325 MG Tab PO PRN ×2 (00:22→06:14)
[2021-04-04] MEDS ORDERED: Trospium 20 MG Tab PO SCH (09:00)
[2021-04-04] MEDS ORDERED: Losartan 50 MG Tab PO SCH (09:00)
[2021-04-04] MEDS ORDERED: Simvastatin 20 MG Tab PO SCH (09:00)
[2021-04-04] MEDS: Carbamide Peroxide 6.5% Otic Soln 15 ML Bottle EARBOTH SCH (09:29)
[2021-04-04 09:30] VITALS: BP 138/96
[2021-04-04 11:47] VITALS: PULSE 72
== END 2021-04-04 12:57 | disposition home or self-care (01) ==
LOC: KA.ED 12:48 → KA.MS 15:38 → UNDOADMOB 15:43
PROVIDERS: ADMIT Family Medicine; ATTEND Family Medicine
DX: I16.0 Hypertensive urgency (principal); E78.00 Pure hypercholesterolemia, unspecified; I10 Essential (primary) hypertension; N40.1 Benign prostatic hyperplasia with lower urinary tract symptoms; R33.8 Other retention of urine; L20.9 Atopic dermatitis, unspecified; J30.9 Allergic rhinitis, unspecified; R35.0 Frequency of micturition; Z79.899 Other long term (current) drug therapy; Z98.890 Other specified postprocedural states; Z20.822 Contact with and (suspected) exposure to COVID-19
CPT/HCPCS: 36415; 71046; 80053; 84484; 85025; 93005; 93010; 96374; 96375; 96376; 99284; 99284-25; A9270-GY; G0378; J0360; J3490; U0002